=== PATIENT | male | born 1945 | race African-American/Black ===

== ENCOUNTER → 2016-08-22 | Outpatient (CLI) | payer MEDICARE, BC, OTHER ==
[2016-08-22 08:46] LABS: ABSOLUTE EOSINOPHILS # (AUTO) 0.2 10^3/uL (0.0-0.6); ABSOLUTE LYMPHOCYTES (AUTO) 1.6 10^3/uL (0.5-4.7); ABSOLUTE NEUT (AUTO) 6.8 10^3/uL (1.7-8.2); BASOPHILS % (AUTO) 0.4 % (0-2); EOSINOPHILS % (AUTO) 1.8 % (0-6); HEMATOCRIT 44.9 % (37.9-51.0); HEMOGLOBIN 15.3 g/dL (13.5-17.0); LYMPHOCYTES % (AUTO) 16.3 % (13-45); MEAN CORPUSCULAR HEMOGLOBIN 28.6 pg (27.0-33.4); MEAN CORPUSCULAR HGB CONC 34.2 g/dL (32.0-36.0); MEAN CORPUSCULAR VOLUME 84 fl (80-97); MONOCYTES % (AUTO) 10.7 % (3-13); RED BLOOD COUNT 5.36 10^6/uL (4.35-5.55); RED CELL DISTRIBUTION WIDTH 14.9 % (11.5-14.0); SEGMENTED NEUTROPHILS % (AUTO) 70.8 % (42-78); WHITE BLOOD COUNT 9.6 10^3/uL (4.0-10.5)
[2016-08-22 09:01] LABS: ALANINE AMINOTRANSFERASE 47 U/L (21-72); ALBUMIN 3.7 g/dL (3.5-5.0); ALKALINE PHOSPHATASE 54 U/L (38-126); ANION GAP 11 (5-19); ASPARTATE AMINO TRANSFERASE 51 U/L (17-59); BILIRUBIN,DIRECT 0.3 mg/dL (0.0-0.4); BILIRUBIN,TOTAL 0.6 mg/dL (0.2-1.3); BLOOD UREA NITROGEN 23 mg/dL (7-20); CALCIUM 9.3 mg/dL (8.4-10.2); CARBON DIOXIDE 31 mmol/L (22-30); CHLORIDE 103 mmol/L (98-107); CHOLESTEROL 195.47 mg/dL (0-200); CREATININE RESULT 2.25 mg/dL (0.52-1.25); Direct HDL 39 mg/dL (>40); GLUCOSE 112 mg/dL (75-110); POTASSIUM 3.1 mmol/L (3.6-5.0); SODIUM 144.8 mmol/L (137-145); TOTAL PROTEIN 6.4 g/dL (6.3-8.2); TRIGLYCERIDES 151 mg/dL (<150)
[2016-08-22 09:12] LABS: DIRECT LDL 112 mg/dL (<100)
[2016-08-22 09:15] LABS: VLDL CHOLESTEROL 30.2 mg/dL (10-31)
[2016-08-23 13:47] LABS: PROSTATE SPECIFIC ANTIGEN 5.3 ng/mL (0.0-4.0); PSA % FREE 32.8 % (.); PSA FREE 1.74 ng/mL
== END ==
LOC: OD 07:35
PROVIDERS: ATTEND Urology
DX: N52.8 Other male erectile dysfunction (principal); E13.9 Other specified diabetes mellitus without complications; E29.1 Testicular hypofunction; N40.1 Benign prostatic hyperplasia with lower urinary tract symptoms; I10 Essential (primary) hypertension
CPT/HCPCS: 36415; 80053; 80061; 83036; 84154; 84403; 85025

== ENCOUNTER → 2016-11-29 | Outpatient (CLI) | payer MEDICARE, BC, OTHER ==
[2016-11-29 13:49] LABS: ABSOLUTE EOSINOPHILS # (AUTO) 0.2 10^3/uL (0.0-0.6); ABSOLUTE LYMPHOCYTES (AUTO) 1.1 10^3/uL (0.5-4.7); ABSOLUTE MONOCYTES (AUTO) 0.8 10^3/uL (0.1-1.4); ABSOLUTE NEUT (AUTO) 6.3 10^3/uL (1.7-8.2); BASOPHILS % (AUTO) 0.6 % (0-2); EOSINOPHILS % (AUTO) 1.9 % (0-6); HEMATOCRIT 40.8 % (37.9-51.0); HEMOGLOBIN 14.4 g/dL (13.5-17.0); HGB HCT DIFFERENCE 2.4; LYMPHOCYTES % (AUTO) 13.3 % (13-45); MEAN CORPUSCULAR HEMOGLOBIN 29.7 pg (27.0-33.4); MEAN CORPUSCULAR HGB CONC 35.2 g/dL (32.0-36.0); MEAN CORPUSCULAR VOLUME 84 fl (80-97); MONOCYTES % (AUTO) 9.4 % (3-13); RED BLOOD COUNT 4.84 10^6/uL (4.35-5.55); RED CELL DISTRIBUTION WIDTH 15.7 % (11.5-14.0); SEGMENTED NEUTROPHILS % (AUTO) 74.8 % (42-78); WHITE BLOOD COUNT 8.4 10^3/uL (4.0-10.5)
[2016-11-29 13:51] LABS: ABSOLUTE EOSINOPHILS # (AUTO) 0.2 10^3/uL (0.0-0.6); ABSOLUTE LYMPHOCYTES (AUTO) 1.1 10^3/uL (0.5-4.7); ABSOLUTE MONOCYTES (AUTO) 0.8 10^3/uL (0.1-1.4); ABSOLUTE NEUT (AUTO) 6.3 10^3/uL (1.7-8.2); BASOPHILS % (AUTO) 0.6 % (0-2); EOSINOPHILS % (AUTO) 1.9 % (0-6); HEMATOCRIT 40.8 % (37.9-51.0); HEMOGLOBIN 14.4 g/dL (13.5-17.0); HGB HCT DIFFERENCE 2.4; LYMPHOCYTES % (AUTO) 13.3 % (13-45); MEAN CORPUSCULAR HEMOGLOBIN 29.7 pg (27.0-33.4); MEAN CORPUSCULAR HGB CONC 35.2 g/dL (32.0-36.0); MEAN CORPUSCULAR VOLUME 84 fl (80-97); MONOCYTES % (AUTO) 9.4 % (3-13); RED BLOOD COUNT 4.84 10^6/uL (4.35-5.55); RED CELL DISTRIBUTION WIDTH 15.7 % (11.5-14.0); SEGMENTED NEUTROPHILS % (AUTO) 74.8 % (42-78); WHITE BLOOD COUNT 8.4 10^3/uL (4.0-10.5)
[2016-11-29 14:17] LABS: ALANINE AMINOTRANSFERASE 34 U/L (21-72); ALKALINE PHOSPHATASE 61 U/L (38-126); ANION GAP 10 (5-19); ASPARTATE AMINO TRANSFERASE 27 U/L (17-59); BILIRUBIN,DIRECT 0.4 mg/dL (0.0-0.4); BILIRUBIN,TOTAL 0.8 mg/dL (0.2-1.3); BLOOD UREA NITROGEN 24 mg/dL (7-20); CALCIUM 9.7 mg/dL (8.4-10.2); CARBON DIOXIDE 32 mmol/L (22-30); CHLORIDE 102 mmol/L (98-107); CHOLESTEROL 222.55 mg/dL (0-200); CREATININE RESULT 2.26 mg/dL (0.52-1.25); Direct HDL 34 mg/dL (>40); GLUCOSE 77 mg/dL (75-110); POTASSIUM 3.1 mmol/L (3.6-5.0); TOTAL PROTEIN 6.9 g/dL (6.3-8.2); TRIGLYCERIDES 177 mg/dL (<150)
[2016-11-29 14:28] LABS: DIRECT LDL 144 mg/dL (<100)
[2016-11-29 14:35] LABS: VLDL CHOLESTEROL 35.4 mg/dL (10-31)
[2016-11-30 08:51] LABS: PROSTATE SPECIFIC ANTIGEN 4.2 ng/mL (0.0-4.0); PSA % FREE 30.7 % (.); PSA FREE 1.29 ng/mL
== END ==
LOC: OD 12:24
PROVIDERS: ATTEND Family Medicine
DX: I10 Essential (primary) hypertension (principal); E78.4 Other hyperlipidemia; E13.9 Other specified diabetes mellitus without complications; N40.1 Benign prostatic hyperplasia with lower urinary tract symptoms; N52.8 Other male erectile dysfunction
CPT/HCPCS: 36415; 80053; 80061; 83036; 84153; 84154; 84403; 85025

== ENCOUNTER → 2017-03-11 | Outpatient (CLI) | payer MEDICARE, BC, OTHER ==
[2017-03-11 15:50] LABS: ABSOLUTE EOSINOPHILS # (AUTO) 0.1 10^3/uL (0.0-0.6); ABSOLUTE LYMPHOCYTES (AUTO) 1.7 10^3/uL (0.5-4.7); ABSOLUTE MONOCYTES (AUTO) 0.9 10^3/uL (0.1-1.4); ABSOLUTE NEUT (AUTO) 5.2 10^3/uL (1.7-8.2); BASOPHILS % (AUTO) 0.5 % (0-2); EOSINOPHILS % (AUTO) 1.3 % (0-6); HEMATOCRIT 43.3 % (37.9-51.0); HEMOGLOBIN 15.1 g/dL (13.5-17.0); LYMPHOCYTES % (AUTO) 21.9 % (13-45); MEAN CORPUSCULAR HEMOGLOBIN 28.8 pg (27.0-33.4); MEAN CORPUSCULAR HGB CONC 34.9 g/dL (32.0-36.0); MEAN CORPUSCULAR VOLUME 82 fl (80-97); MONOCYTES % (AUTO) 10.9 % (3-13); RED BLOOD COUNT 5.26 10^6/uL (4.35-5.55); RED CELL DISTRIBUTION WIDTH 15.7 % (11.5-14.0); SEGMENTED NEUTROPHILS % (AUTO) 65.4 % (42-78)
[2017-03-11 16:07] LABS: HEMATOCRIT 43.3 % (37.9-51.0); HEMOGLOBIN 15.1 g/dL (13.5-17.0); MEAN CORPUSCULAR HEMOGLOBIN 28.8 pg (27.0-33.4); MEAN CORPUSCULAR HGB CONC 34.9 g/dL (32.0-36.0); MEAN CORPUSCULAR VOLUME 82 fl (80-97); RED BLOOD COUNT 5.26 10^6/uL (4.35-5.55); RED CELL DISTRIBUTION WIDTH 15.7 % (11.5-14.0)
[2017-03-11 16:08] LABS: CHOLESTEROL 253.63 mg/dL (0-200); Direct HDL 44 mg/dL (>40); TRIGLYCERIDES 198 mg/dL (<150)
[2017-03-11 16:09] LABS: ANION GAP 10 (5-19); BLOOD UREA NITROGEN 21 mg/dL (7-20); CARBON DIOXIDE 32 mmol/L (22-30); CHLORIDE 107 mmol/L (98-107); CREATININE RESULT 2.19 mg/dL (0.52-1.25); GLUCOSE 46 mg/dL (75-110); POTASSIUM 3.3 mmol/L (3.6-5.0); SODIUM 149.4 mmol/L (137-145)
[2017-03-11 16:10] LABS: ALANINE AMINOTRANSFERASE 30 U/L (21-72); ALBUMIN 3.8 g/dL (3.5-5.0); ALKALINE PHOSPHATASE 61 U/L (38-126); ANION GAP 11 (5-19); ASPARTATE AMINO TRANSFERASE 25 U/L (17-59); BILIRUBIN,DIRECT 0.4 mg/dL (0.0-0.4); BILIRUBIN,TOTAL 0.9 mg/dL (0.2-1.3); BLOOD UREA NITROGEN 20 mg/dL (7-20); CALCIUM 8.9 mg/dL (8.4-10.2); CARBON DIOXIDE 31 mmol/L (22-30); CHLORIDE 106 mmol/L (98-107); CREATININE RESULT 2.17 mg/dL (0.52-1.25); GLUCOSE 46 mg/dL (75-110); POTASSIUM 3.3 mmol/L (3.6-5.0); SODIUM 148.4 mmol/L (137-145); TOTAL PROTEIN 6.2 g/dL (6.3-8.2)
[2017-03-11 16:18] LABS: DIRECT LDL 157 mg/dL (<100)
[2017-03-11 16:19] LABS: VLDL CHOLESTEROL 39.6 mg/dL (10-31)
== END ==
LOC: OD 14:47
PROVIDERS: ATTEND Urology
DX: I12.9 Hypertensive chronic kidney disease with stage 1 through stage 4 chronic kidney disease, or unspecified chronic kidney disease (principal); N18.3 Chronic kidney disease, stage 3 (moderate); E78.5 Hyperlipidemia, unspecified; N52.8 Other male erectile dysfunction; N52.9 Male erectile dysfunction, unspecified; N40.1 Benign prostatic hyperplasia with lower urinary tract symptoms; E29.1 Testicular hypofunction
CPT/HCPCS: 36415; 80048; 80053; 80061; 84153; 84403; 85025; 85027

== ENCOUNTER 2017-03-31 17:59 | Inpatient (IN) | payer MEDICARE, BC, OTHER ==
[2017-03-31] MEDS ORDERED: MORPHINE SULFATE 10 MG/ML INJ IV ONE ×2 (18:45→22:38)
--- NOTE | 2017-03-31 18:46 | ER Document Report ---
ED Medical Screen (RME) - General Chief Complaint: Low Back Pain Stated Complaint: LEFT SIDE AND BACK PAIN Time Seen by Provider: 03/31/17 18:40 Mode of Arrival: Ambulatory Information source: Patient Notes: 71-year-old male history of back pain presents with complaints of worsening pain. He denies any trauma, notes pain is on the right flank 2 days ago and now worse on the left flank. Patient has never had his aorta evaluated I have greeted and performed a rapid initial assessment of this patient. A comprehensive ED assessment and evaluation of the patient, analysis of test results and completion of the medical decision making process will be conducted by additional ED providers. PHYSICAL EXAMINATION: GENERAL: Well-appearing, well-nourished and in moderate distress HEAD: Atraumatic, normocephalic. EYES: Pupils equal round extraocular movements intact, conjunctiva are normal. ENT: Nares patent NECK: Normal range of motion LUNGS: No respiratory distress Musculoskeletal: Tenderness on palpation of bilateral flanks left worse than right NEUROLOGICAL: Normal speech, normal gait. PSYCH: Normal mood, normal affect. SKIN: Warm, Dry, normal turgor, no rashes or lesions noted. TRAVEL OUTSIDE OF THE [place] IN LAST 30 DAYS: No - Related Data Allergies/Adverse Reactions: Penicillins Allergy (Verified 03/31/17 18:02) Gfyilae-Lof-Jvw Reductase Inhibitor Allergy (Verified 03/31/17 18:02) Past Medical History - Social History Frequency of alcohol use: None Drug Abuse: None - Past Medical History Cardiac Medical History: Reports: Hx Hypercholesterolemia, Hx Hypertension Denies: Hx Heart Attack - 3 HEART CATHERIZATION Pulmonary Medical History: Denies: Hx Asthma Neurological Medical History: Reports: Hx Cerebrovascular Accident - RIGHT SIDE WEAKNESS 1998. Denies: Hx Seizures Endocrine Medical History: Reports: Hx Diabetes Mellitus Type 1, Hx Diabetes Mellitus Type 2 Renal/ Medical History: Denies: Hx Peritoneal Dialysis GI Medical History: Denies: Hx Hepatitis, Hx Hiatal Hernia, Hx Ulcer Infectious Medical History: Denies: Hx Hepatitis Past Surgical History: Reports: Hx Cardiac Catheterization - x3, Hx Orthopedic Surgery - R Knee. Denies: Hx Open Heart Surgery, Hx Pacemaker - Immunizations Hx Diphtheria, Pertussis, Tetanus Vaccination: Yes Physical Exam - Vital signs Vitals: Temp Pulse Resp BP Pulse Ox 98.5 F 110 H 20 166/90 H 97 03/31/17 18:28 03/31/17 18:28 03/31/17 18:28 03/31/17 18:28 03/31/17 18:28 Course - Vital Signs Vital signs: Temp Pulse Resp BP Pulse Ox 98.5 F 110 H 20 166/90 H 97 03/31/17 18:28 03/31/17 18:28 03/31/17 18:28 03/31/17 18:28 03/31/17 18:28
[2017-03-31] MEDS ORDERED: ONDANSETRON HCL INJ/PF 4 MG/2 ML SDV IV ONE (19:18)
--- NOTE | 2017-03-31 19:21 | ER Document Report ---
ED General - General Chief Complaint: Low Back Pain Stated Complaint: LEFT SIDE AND BACK PAIN Time Seen by Provider: 03/31/17 18:40 Mode of Arrival: Ambulatory Information source: Patient Notes: 71-year-old male history of back pain presents with complaints of worsening pain. He denies any trauma, notes pain is on the right flank 2 days ago and now worse on the left flank. Patient has never had his aorta evaluated. About triage nose was reviewed. He has been having severe lower back pain, radiating to both legs. Initially it was on the right side now moved to the left side. Having difficulty sitting up laying down even standing and walking. With a history of diabetic neuropathy for the last few years. Denies any abdominal pain nausea vomiting diarrhea or constipation. Denies any dysuria frequency urgency. Denies hematuria. No fever chills or other constitutional symptoms. TRAVEL OUTSIDE OF THE [place] IN LAST 30 DAYS: No - Related Data Allergies/Adverse Reactions: Penicillins Allergy (Verified 03/31/17 18:02) Hdttbqm-Vts-Ain Reductase Inhibitor Allergy (Verified 03/31/17 18:02) Past Medical History - General Information source: Patient - Social History Smoking Status: Never Smoker Frequency of alcohol use: None Drug Abuse: None Family History: Reviewed & Not Pertinent Patient has suicidal ideation: No Patient has homicidal ideation: No - Past Medical History Cardiac Medical History: Reports: Hx Hypercholesterolemia, Hx Hypertension Denies: Hx Heart Attack - 3 HEART CATHERIZATION Pulmonary Medical History: Denies: Hx Asthma Neurological Medical History: Reports: Hx Cerebrovascular Accident - RIGHT SIDE WEAKNESS 1998. Denies: Hx Seizures Endocrine Medical History: Reports: Hx Diabetes Mellitus Type 1, Hx Diabetes Mellitus Type 2 Renal/ Medical History: Denies: Hx Peritoneal Dialysis GI Medical History: Denies: Hx Hepatitis, Hx Hiatal Hernia, Hx Ulcer Infectious Medical History: Denies: Hx Hepatitis Past Surgical History: Reports: Hx Cardiac Catheterization - x3, Hx Orthopedic Surgery - R Knee. Denies: Hx Open Heart Surgery, Hx Pacemaker - Immunizations Hx Diphtheria, Pertussis, Tetanus Vaccination: Yes Hx Pneumococcal Vaccination: 04/07/12 Review of Systems - Review of Systems Notes: REVIEW OF SYSTEMS: CONSTITUTIONAL : Denies fever, chills, or sweats. Denies recent illness. EENT: Denies eye, ear, throat, or mouth pain or symptoms. Denies nasal or sinus congestion or discharge. Denies throat, tongue, or mouth swelling or difficulty swallowing. CARDIOVASCULAR: Denies chest pain. Denies palpitations or racing or irregular heart beat. Denies ankle edema. RESPIRATORY: Denies cough, cold, or chest congestion. Denies shortness of breath, difficulty breathing, or wheezing. GASTROINTESTINAL: Denies abdominal pain or distention. Denies nausea, vomiting , or diarrhea. Denies blood in vomitus, stools, or per rectum. Denies black, tarry stools. Denies constipation. GENITOURINARY: Denies difficulty urinating, painful urination, burning, frequency, blood in urine, or discharge. MUSCULOSKELETAL: As per history of complain SKIN: Denies rash, lesions or sores. HEMATOLOGIC : Denies easy bruising or bleeding. LYMPHATIC: Denies swollen, enlarged glands. NEUROLOGICAL: Denies confusion or altered mental status. Denies passing out or loss of consciousness. Denies dizziness or lightheadedness. Denies headache. Denies weakness or paralysis or loss of use of either side. Denies problems with gait or speech. Denies sensory loss, numbness, or tingling. Denies seizures. PSYCHIATRIC: Denies anxiety or stress. Denies depression, suicidal ideation, or homicidal ideation. ALL OTHER SYSTEMS REVIEWED AND NEGATIVE. Dictation was performed using [employer] voice recognition software PHYSICAL EXAMINATION: GENERAL: Appeared to be moderate to severe discomfort HEAD: Atraumatic, normocephalic. EYES: Pupils equal round and reactive to light, extraocular movements intact, sclera anicteric, conjunctiva are normal. ENT: Nares patent, oropharynx clear without exudates. Moist mucous membranes. NECK: Normal range of motion, supple without lymphadenopathy LUNGS: Breath sounds clear to auscultation bilaterally and equal. No wheezes rales or rhonchi. HEART: Regular rate and rhythm without murmurs ABDOMEN: Soft, nontender, nondistended abdomen. No guarding, no rebound. No masses appreciated. Musculoskeletal: He could not perform any flexion extension of the hip due to pain, dorsalis pedis pulses are present. NEUROLOGICAL: Cranial nerves grossly intact. Normal speech, normal gait. Normal sensory, motor exams PSYCH: Normal mood, normal affect. SKIN: Warm, Dry, normal turgor, no rashes or lesions noted. Physical Exam - Vital signs Vitals: Temp Pulse Resp BP Pulse Ox 98.5 F 110 H 20 166/90 H 97 03/31/17 18:28 03/31/17 18:28 03/31/17 18:28 03/31/17 18:28 03/31/17 18:28 Course - Re-evaluation Re-evalutation: 03/31/17 22:38 CT report reviewed, patient was reexamined, he is still in pain reexamination of the abdomen he had left lower quadrant tenderness noted., CT was reviewed by me itself and it indicates he has large amount of fecal material. 04/01/17 03:34 He has evacuated some but still having severe back pain as well as abdominal pain. He was given Levaquin, discussed the case with Dr. Humphreys And currently being admitted. - Vital Signs Vital signs: Temp Pulse Resp BP Pulse Ox 98.5 F 110 H 20 166/90 H 97 03/31/17 18:28 03/31/17 18:28 03/31/17 18:28 03/31/17 18:28 03/31/17 18:28 - Laboratory Result Diagrams: 03/31/17 19:00 03/31/17 19:00 Laboratory results interpreted by me: 03/31/17 03/31/17 19:00 19:00 WBC 15.0 H RDW 15.8 H Seg Neutrophils % 82.6 H Lymphocytes % 6.4 L Absolute Neutrophils 12.4 H Absolute Monocytes 1.5 H Sodium 145.3 H Potassium 3.1 L Creatinine 2.63 H Est GFR ( Amer) 29 L Est GFR (Non-Af Amer) 24 L Discharge - Discharge Clinical Impression: Abdominal pain Qualifiers: Abdominal location: lower abdomen, unspecified Qualified Code(s): R10.30 - Lower abdominal pain, unspecified Diverticulitis large intestine Qualifiers: Diverticulitis bleeding: without bleeding Diverticulitis complication: without perforation or abscess Qualified Code(s): K57.32 - Diverticulitis of large intestine without perforation or abscess without bleeding Back pain Qualifiers: Back pain location: low back pain Chronicity: acute Back pain laterality: left Sciatica presence: with sciatica Sciatica laterality: sciatica of left side Qualified Code(s): M54.42 - Lumbago with sciatica, left side Constipation Qualifiers: Constipation type: slow transit constipation Qualified Code(s): K59.01 - Slow transit constipation Condition: Fair Disposition: ADMITTED INPATIENT Admitting Provider: [facility] Unit Admitted: Telemetry Referrals: NICHOL VÁSQUEZ MD [Primary Care Provider] - Follow up as needed
[2017-03-31 19:25] LABS: ABSOLUTE BASOPHILS # (AUTO) 0.1 10^3/uL (0.0-0.2); ABSOLUTE MONOCYTES (AUTO) 1.5 10^3/uL (0.1-1.4); ABSOLUTE NEUT (AUTO) 12.4 10^3/uL (1.7-8.2); BASOPHILS % (AUTO) 0.6 % (0-2); EOSINOPHILS % (AUTO) 0.1 % (0-6); HEMATOCRIT 45.3 % (37.9-51.0); HEMOGLOBIN 15.8 g/dL (13.5-17.0); LYMPHOCYTES % (AUTO) 6.4 % (13-45); MEAN CORPUSCULAR HEMOGLOBIN 28.8 pg (27.0-33.4); MEAN CORPUSCULAR HGB CONC 34.9 g/dL (32.0-36.0); MEAN CORPUSCULAR VOLUME 83 fl (80-97); MONOCYTES % (AUTO) 10.3 % (3-13); PLATELET COUNT 276 10^3/uL (150-450); RED BLOOD COUNT 5.49 10^6/uL (4.35-5.55); RED CELL DISTRIBUTION WIDTH 15.8 % (11.5-14.0); SEGMENTED NEUTROPHILS % (AUTO) 82.6 % (42-78); TOTAL CELLS COUNTED % (AUTO) 100 %
[2017-03-31 19:43] LABS: ALANINE AMINOTRANSFERASE 40 U/L (21-72); ALBUMIN 4.3 g/dL (3.5-5.0); ALKALINE PHOSPHATASE 68 U/L (38-126); ANION GAP 13 (5-19); ASPARTATE AMINO TRANSFERASE 26 U/L (17-59); BILIRUBIN,DIRECT 0.3 mg/dL (0.0-0.4); BLOOD UREA NITROGEN 19 mg/dL (7-20); CALCIUM 9.7 mg/dL (8.4-10.2); CARBON DIOXIDE 30 mmol/L (22-30); CHLORIDE 102 mmol/L (98-107); GLUCOSE 109 mg/dL (75-110); POTASSIUM 3.1 mmol/L (3.6-5.0); SODIUM 145.3 mmol/L (137-145); TOTAL PROTEIN 7.9 g/dL (6.3-8.2)
--- NOTE | 2017-03-31 22:27 | RADIOLOGY REPORT (SQ) ---
EXAM DESCRIPTION: CT CHEST WITHOUT COMPLETED DATE/TIME: 03/31/2017 10:12 pm REASON FOR STUDY: low back pain, concerns for aneurysm COMPARISON: None. TECHNIQUE: CT scan performed of the chest without intravenous contrast. Images reviewed with lung, soft tissue and bone windows. Reconstructed coronal and sagittal MPR images reviewed. All images st ored on PACS. All CT scanners at this facility use dose modulation, iterative reconstruction, and/or weight based d osing when appropriate to reduce radiation dose to as low as reasonably achievable (ALARA). [facility]: Dose Right [facility]: CareDose [facility]: Dose Right [facility]: Teradose 4D [facility]: [employer] RADIATION DOSE: mGy. LIMITATIONS: No IV contrast. Elevated creatinine. FINDINGS: LUNGS AND PLEURA: No masses, infiltrates, pneumothorax. No pleural effusions, calcificati ons. HILAR AND MEDIASTINAL STRUCTURES: No identified masses or abnormal nodes. No obvious aneurysm. HEART AND VASCULAR STRUCTURES: No aneurysm. No pericardial effusion. UPPER ABDOMEN: See separate report of the CT of the abdomen. THYROID AND OTHER SOFT TISSUES: No masses. No adenopathy. BONES: No significant finding. HARDWARE: None in the chest. OTHER: No other significant findings. IMPRESSION: NO SIGNIFICANT FINDING ON NON-CONTRASTED CHEST CT. TECHNICAL DOCUMENTATION: JOB ID: [id number] Quality ID # [id number]: Final reports with documentation of one or more dose reduction techniques (e.g., Au tomated exposure control, adjustment of the mA and/or kV according to patient size, use of iterative reconstruction technique) 2010 [employer] All Rights Reserved
--- NOTE | 2017-03-31 22:29 | RADIOLOGY REPORT (SQ) ---
EXAM DESCRIPTION: CT ABD/PELVIS NO ORAL OR IV COMPLETED DATE/TIME: 03/31/2017 10:12 pm REASON FOR STUDY: low back pain, concerns for aneurysm COMPARISON: None. TECHNIQUE: CT scan of the abdomen and pelvis performed without intravenous or oral contrast. Images reviewed with lung, soft tissue, and bone windows. Reconstructed coronal and sagittal MPR images revi ewed. All images stored on PACS. All CT scanners at this facility use dose modulation, iterative reconstruction, and/or weight based d osing when appropriate to reduce radiation dose to as low as reasonably achievable (ALARA). [facility]: Dose Right [facility]: CareDose [facility]: Dose Right [facility]: Teradose 4D [facility]: Smart [employer] RADIATION DOSE: CT Rad equipment meets quality standard of care and radiation dose reduction techniq ues were employed. CTDIvol: 5.8 mGy. DLP: 408 mGy-cm.mGy. LIMITATIONS: None. FINDINGS: LOWER CHEST: No significant findings. No nodules or infiltrates. NON-CONTRASTED LIVER, SPLEEN, ADRENALS: Evaluation limited by lack of IV contrast. No identified sign ificant masses. PANCREAS: No masses. No peripancreatic inflammatory changes. GALLBLADDER: No identified stones by CT criteria. No inflammatory changes to suggest cholecystitis. RIGHT KIDNEY AND URETER: No suspicious masses. Assessment limited by lack of IV contrast. No signif icant calcifications. No hydronephrosis or hydroureter. LEFT KIDNEY AND URETER: No suspicious masses. Assessment limited by lack of IV contrast. No signifi cant calcifications. No hydronephrosis or hydroureter. AORTA AND RETROPERITONEUM: No aneurysm. No retroperitoneal masses or adenopathy. BOWEL AND PERITONEAL CAVITY: No obvious masses or inflammatory changes. No free fluid. APPENDIX: Normal. PELVIS, BLADDER, AND ABDOMINAL WALL:Penile prosthesis. Bladder unremarkable. Enlarged prostate. BONES: Degenerative changes L5-S1. OTHER: No other significant finding. IMPRESSION: NO SIGNIFICANT OR ACUTE PROCESS IN THE ABDOMEN OR PELVIS. COMMENT: Quality ID # [id number]: Final reports with documentation of one or more dose reduction techniques (e.g., Automated exposure control, adjustment of the mA and/or kV according to patient size, use of iterative reconstruction technique) TECHNICAL DOCUMENTATION: JOB ID: [id number] [employer]- All Rights Reserved
[2017-03-31] MEDS ORDERED: POTASSIUM CHLORIDE 10 MEQ TABLET.SA PO ONE (22:31)
[2017-03-31] MEDS ORDERED: DOCUSATE SODIUM 100 MG CAPSULE PO ONE (22:36)
[2017-03-31] MEDS ORDERED: NA PHOS,M-B/NA PHOS,DI-BA (ADULT) 133 ML ENEMA PR ONE (22:36)
[2017-04-01] MEDS ORDERED: LEVOFLOXACIN 750 MG TABLET PO ONE (03:09)
[2017-04-01] MEDS ORDERED: PROMETHAZINE HCL INJ 50 MG/1 ML VIAL IM PRN (03:33)
[2017-04-01] MEDS ORDERED: CIPROFLOXACIN 400 MG/D5W RTU 400 MG/200 ML RTUPB IV ONE (03:36)
[2017-04-01] MEDS ORDERED: METRONIDAZOLE 500 MG/NS RTU 250 MG in CONTAINER,EMPTY 1 EACH IV SCH (03:45)
[2017-04-01] MEDS ORDERED: METRONIDAZOLE 500 MG/NS RTU 250 MG in CONTAINER,EMPTY 1 EACH IV ONE (04:00)
[2017-04-01] MEDS ORDERED: NORMAL SALINE 1000 ML 1,000 ML IV ONE (05:03)
[2017-04-01] MEDS ORDERED: NORMAL SALINE 1000 ML 1,000 ML IV PRN ×3 (05:03→08:41)
[2017-04-01] MEDS ORDERED: METRONIDAZOLE 500 MG/NS RTU 100 ML IV ONE (05:04)
[2017-04-01] MEDS ORDERED: PROMETHAZINE HCL INJ 50 MG/1 ML VIAL ONE (05:20)
[2017-04-01] MEDS ORDERED: DEXTROSE 40% GEL 15 GM TUBE PO PRN ×6 (05:48→13:45)
[2017-04-01] MEDS ORDERED: DEXTROSE 50%-WATER 25 GM/50 ML DISP.SYRIN IV PRN ×6 (05:48→13:45)
[2017-04-01] MEDS ORDERED: GLUCAGON,HUMAN RECOMB 1 MG INJ SUBCUT PRN (05:48)
[2017-04-01] MEDS ORDERED: GLUCAGON,HUMAN RECOMB 1 MG INJ IM PRN ×2 (05:54→13:45)
[2017-04-01] MEDS ORDERED: LABETALOL HCL INJ 20 MG/4 ML DISP.SYRIN IV PRN (05:56)
[2017-04-01 06:31] LABS: ARTERIAL BLOOD BASE EXCESS 0.1 mmol/L; ARTERIAL BLOOD H2CO3 1.39 mmol/L (1.05-1.35); ARTERIAL BLOOD HCO3 25.9 mmol/L (20-26); ARTERIAL BLOOD O2 SATURATION 88.1 % (94-98); ARTERIAL BLOOD PCO2 46.3 mmHg (35-45); ARTERIAL BLOOD PH 7.37 (7.35-7.45); ARTERIAL BLOOD TOTAL CO2 27.3 mmol/L (23-27)
[2017-04-01 06:32] LABS: ARTERIAL BLOOD FIO2 ROOM AIR
[2017-04-01] MEDS: HEPARIN SOD (PORCINE) 5,000 UNIT/ML 1 ML SYRINGE SUBCUT SCH ×3 (06:34→21:25)
[2017-04-01 06:56] LABS: INTERNATIONAL RATION (INR) 0.95; PROTHROMBIN TIME 13.4 SEC (11.4-15.4)
[2017-04-01 06:57] LABS: PARTIAL THROMBOPLASTIN TIME 42.3 SEC (23.5-35.8)
[2017-04-01 07:10] LABS: CREATINE KINASE MB 1.71 ng/mL (<4.55)
[2017-04-01 07:14] LABS: FREE T4 (FREE THYROXINE) 1.01 ng/dL (0.78-2.19)
[2017-04-01 07:16] LABS: TROPONIN I 0.038 ng/mL
[2017-04-01 07:28] LABS: THYROID STIMULATING HORMONE 3.87 uIU/mL (0.47-4.68)
[2017-04-01] MEDS ORDERED: POLYETHYLENE GLYCOL 3350 POWDER 17 GM/1 PACKET PO ONE (09:00)
[2017-04-01] MEDS: CIPROFLOXACIN 400 MG/D5W RTU 400 MG/200 ML RTUPB IV SCH ×2 (09:01→21:25)
[2017-04-01] MEDS: MORPHINE SULFATE 10 MG/ML INJ IV PRN ×2 (09:02→23:22)
[2017-04-01] MEDS: DOCUSATE SODIUM 100 MG CAPSULE PO SCH ×2 (09:02→17:47)
[2017-04-01 09:06] LABS: ANION GAP 18 (5-19); BLOOD UREA NITROGEN 21 mg/dL (7-20); CALCIUM 9.7 mg/dL (8.4-10.2); CARBON DIOXIDE 24 mmol/L (22-30); CHLORIDE 102 mmol/L (98-107); GLUCOSE 125 mg/dL (75-110); MAGNESIUM 1.6 mg/dL (1.6-2.3); POTASSIUM 3.5 mmol/L (3.6-5.0); SODIUM 144.3 mmol/L (137-145)
[2017-04-01] MEDS ORDERED: INFLUENZA ADLT QUAD (36MOS+) 2017-18 VAC 0.5 ML SYR IM PRN (10:18)
[2017-04-01] MEDS ORDERED: ONDANSETRON HCL INJ/PF 4 MG/2 ML SDV IV PRN (11:07)
--- NOTE | 2017-04-01 11:38 | RADIOLOGY REPORT (SQ) ---
EXAM DESCRIPTION: MRI LUMBAR SPINE WITHOUT COMPLETED DATE/TIME: 04/01/2017 10:25 am REASON FOR STUDY: acute lower back pain with radiculopathy COMPARISON: 2014. TECHNIQUE: Sagittal and Axial imaging includes T1, T2, STIR and gradient echo sequences. Coronal T2/ HASTE imaging. LIMITATIONS: None. FINDINGS: VISUALIZED UPPER ABDOMEN: Limited evaluation. No acute or suspicious findings suggested. SEGMENTATION: No transitional anatomy. The lowest well-developed disc space is labeled L5-S1. ALIGNMENT: Minimal grade 1 listhesis at the lumbosacral junction. VERTEBRAE: Intact. BONE MARROW: Marrow edema at L5-S1 has resolved. Fatty changes are now noted. DISC SIGNAL: Diminished signal and height L4-5 and L5-S1. POSTERIOR ELEMENTS: No pars defect appreciated. Lower lumbar facet overgrowth. HARDWARE: None in the spine. CORD AND CONUS: Normal in size and signal intensity. Conus at the appropriate level. SOFT TISSUES: No aortic aneurysm seen. No bulky retroperitoneal adenopathy or mass. No paraspinal mas s or fluid. L1-L2: No significant spinal stenosis or exit foraminal stenosis. L2-L3: No significant spinal stenosis or exit foraminal stenosis. L3-L4: No significant spinal stenosis or exit foraminal stenosis. L4-L5: Mild right and moderate left foraminal narrowing. L5-S1: Broad protrusion effaces the anterior CSF space with slightly eccentric right foraminal and la teral extension. Contact with both S1 nerve roots, slight mass effect on the right. Irregular facet degenerative overgrowth. LOWER THORACIC: Incompletely imaged. No stenosis seen. SACRUM: Visualized upper sacrum intact. OTHER: No other significant findings. IMPRESSION: 1. Lumbar spondylosis without critical central stenosis. Disc disease looks most prono unced at L5-S1. Here, there is mild mass effect on the right S1 nerve root. Exuberant facet arthrop athy as well. Marrow edema regionally has resolved, however. TECHNICAL DOCUMENTATION: JOB ID: [id number]- All Rights Reserved
[2017-04-01] MEDS: DICYCLOMINE HCL INJ 20 MG/2 ML AMPULE IM SCH (12:31)
[2017-04-01] MEDS: METRONIDAZOLE 500 MG/NS RTU 100 ML IV SCH ×3 (12:32→23:24)
[2017-04-01] MEDS ORDERED: PREGABALIN 100 MG CAPSULE PO PRN (13:43)
[2017-04-01] MEDS ORDERED: NITROGLYCERIN 0.4 MG/TAB 25 TAB/BOTTLE SL PRN (13:43)
[2017-04-01 13:57] LABS: CREATINE KINASE MB 2.8 ng/mL (<4.55); TROPONIN I 0.049 ng/mL
--- NOTE | 2017-04-01 14:25 | PDOC H&P ---
History of Present Illness Admission Date/PCP: 04/01/17 03:44 KODY VARGHESE MD Patient complains of: Lower back pain and abdominal pain History of Present Illness: CAROL JENSEN is a 71 year old male This is a 71-year-old male with a significant history of the type 2 diabetes mellitus currently on insulin pump and see the [facility] and a history of erectile dysfunction currently see a urology and on testosterone injections and history of the coronary artery disease and a history of chronic back pain and history of the discitis in the past and was admitted to the [facility] for thatCame to the emergency department with a complaining of lower back pain radiating to the bilaterally initially left in the right side and patient was also complaining of her left lower quadrant painAnd not feeling well and patient unable to move unable to walkAnd in the emergency department patient of the CT of the chest and abdomen and pelvis was done was suggestive possible mild diverticulosis and constipationsAnd patient was giving the IV antibiotic and decided to admit in the IMCU for further evaluations Since white count was elevated 15 but patient have a no fever But I saw the patient in the floor patient still in a lot of pain initially described from the back and the left lower quadrant Patient have recently started the Victoza by the beach attendant and patient's noticed some more nausea and vomiting and patient's initial lipase was normal but second lipase was elevated to up to 900 range Patient's denied any chest pain denied any shortness of the breath Patient was recently get the testosterone injection last week Discussed with the patient and the on the bedside and will order the MRI of the LS spine Past Medical History Cardiac Medical History: Reports: Coronary Artery Disease, Hyperlipidema, Hypertension Denies: Myocardial Infarction - 3 HEART CATHERIZATION Pulmonary Medical History: Denies: Asthma Neurological Medical History: Reports: Ischemic CVA Denies: Seizures Endocrine Medical History: Reports: Diabetes Mellitus Type 1, Diabetes Mellitus Type 2 Renal/ Medical History: Reports: Chronic Kidney Disease GI Medical History: Reports: Gastroesophageal Reflux Disease Denies: Hepatitis, Hiatal Hernia Musculoskeltal Medical History: Reports: Arthritis Musculoskeletal History Note: Chronic back pain in the neck pain History of the discitis and patient was admitted to the [facility] and the source most likely from insulin pump Psychiatric Medical History: Reports: Post Traumatic Stress Disorder, Other Hematology: Denies: Anemia, Sickle Cell Disease Past Surgical History Past Surgical History: Reports: Cardiac Catheterization - x3, Orthopedic Surgery - R Knee Denies: Pacemaker Social History Smoking Status: Never Smoker Frequency of Alcohol Use: None Hx Recreational Drug Use: No Drugs: None Hx Prescription Drug Abuse: No - Advance Directive Resuscitation Status: Full Code Family History Family History: Reviewed & Not Pertinent Parental Family History Reviewed: Yes Children Family History Reviewed: Yes Sibling(s) Family History Reviewed.: Yes Medication/Allergy Home Medications: Amlodipine Besylate/Valsartan [Exforge 10-320 mg Tablet] 1 tab PO DAILY Aspirin [Aspirin 325 mg Tablet] 325 mg PO DAILY 04/01/17 Carvedilol [Coreg 3.125 mg Tablet] 3.125 mg PO Q12 04/01/17 Cholesterolized Hydrophilic Ointment 1 applic TOP BID 04/01/17 Clotrimazole 1 applic TOP QHS 04/01/17 Diclofenac Epolamine [Flector] 1 patch TOP BID 04/01/17 Escitalopram Oxalate [Lexapro] 20 mg PO DAILYP PRN 04/01/17 Ezetimibe [Zetia 10 mg Tablet] 10 mg PO DAILY 04/01/17 Furosemide [Lasix 40 mg Tablet] 40 mg PO DAILY 04/01/17 Insulin Aspart [Novolog Insulin (Aspart) 100 unit/mL] See Protocol PUMP CONTINUOUS PRN 04/01/17 Isosorbide Mononitrate [Imdur 60 mg Tablet.er] 60 mg PO DAILY 04/01/17 Liraglutide [Victoza 2-Selvin] 0.1 ml SQ DAILY 04/01/17 Lubiprostone [Amitiza 24 Mcg Capsule] 24 mcg PO BID 04/01/17 Nitroglycerin [Nitrostat 0.4 mg (1/150 Gr) Tabs 25/Bottle] 0.4 mg SL Q5MP PRN Omeprazole 20 mg PO DAILY 04/01/17 Pitavastatin Calcium [Livalo] 4 mg PO DAILY 04/01/17 Polyethylene Glycol 3350 [Miralax Powder 17 gm/Packet] 1 packet PO BID 04/01/17 Pregabalin [Lyrica 100 mg Capsule] 100 mg PO BIDP PRN 04/01/17 Testosterone Cypionate [Depo-Testosterone] 400 units IM [id number] 04/01/17 Urea [Urea-C40] 1 applic TOP BID 04/01/17 Allergies/Adverse Reactions: Penicillins Allergy (Verified 03/31/17 18:02) Avbituf-Hay-Gkw Reductase Inhibitor Allergy (Verified 03/31/17 18:02) Review of Systems Constitutional: PRESENT: fatigue, weakness. ABSENT: chills, fever(s), headache( s), weight gain, weight loss Eyes: ABSENT: visual disturbances Ears: ABSENT: hearing changes Cardiovascular: ABSENT: chest pain, dyspnea on exertion, edema, orthropnea, palpitations Respiratory: ABSENT: cough, hemoptysis Gastrointestinal: PRESENT: abdominal pain, nausea, vomiting. ABSENT: constipation, diarrhea, hematemesis, hematochezia Genitourinary: ABSENT: dysuria, hematuria Musculoskeletal: PRESENT: back pain, muscle weakness. ABSENT: joint swelling Integumentary: ABSENT: rash, wounds Neurological: ABSENT: abnormal gait, abnormal speech, confusion, dizziness, focal weakness, syncope Psychiatric: ABSENT: anxiety, depression, homidical ideation, suicidal ideation Endocrine: ABSENT: cold intolerance, heat intolerance, menstrual abnormalities, polydipsia, polyuria Hematologic/Lymphatic: ABSENT: easy bleeding, easy bruising, lymphadenopathy Physical Exam Vital Signs: Temp Pulse Resp BP Pulse Ox 98.1 F 82 15 163/93 H 95 04/01/17 12:00 04/01/17 12:00 04/01/17 12:00 04/01/17 12:00 04/01/17 12:00 Intake & Output 03/31/17 04/01/17 04/02/17 06:59 06:59 06:59 Weight 84.6 kg General appearance: PRESENT: no acute distress, well-developed, well-nourished Head exam: PRESENT: atraumatic, normocephalic Eye exam: PRESENT: conjunctiva pink, EOMI, PERRLA. ABSENT: scleral icterus Ear exam: PRESENT: normal external ear exam Mouth exam: PRESENT: moist, tongue midline Neck exam: PRESENT: full ROM. ABSENT: carotid bruit, JVD, lymphadenopathy, thyromegaly Respiratory exam: PRESENT: clear to auscultation zuleima Cardiovascular exam: PRESENT: RRR. ABSENT: diastolic murmur, rubs, systolic murmur Pulses: PRESENT: normal dorsalis pedis pul, +2 pedal pulses bilateral Vascular exam: PRESENT: normal capillary refill GI/Abdominal exam: PRESENT: normal bowel sounds, soft, tenderness. ABSENT: distended, guarding, mass, organolmegaly, rebound Additonal comments: Left lower quadrant Rectal exam: PRESENT: deferred Extremities exam: ABSENT: full ROM, left AKA, right AKA, left BKA, right BKA, calf tenderness, joint swelling, pedal edema, tenderness, other Musculoskeletal exam: PRESENT: tenderness Additional comments: In the lower spine Neurological exam: PRESENT: alert, awake, oriented to person, oriented to place , oriented to time, oriented to situation, CN II-XII grossly intact. ABSENT: motor sensory deficit Psychiatric exam: PRESENT: appropriate affect, normal mood. ABSENT: homicidal ideation, suicidal ideation Skin exam: PRESENT: dry, intact, warm. ABSENT: cyanosis, rash Results Laboratory Results: 04/01/17 06:07 04/01/17 04/01/17 04/01/17 06:07 06:07 06:07 Carbonic Acid HCO3/H2CO3 Ratio ABG pH ABG pCO2 ABG pO2 ABG HCO3 ABG O2 Saturation ABG Base Excess FiO2 Sodium Potassium Chloride Carbon Dioxide Anion Gap BUN Creatinine Est GFR ( Amer) Est GFR (Non-Af Amer) Glucose Calcium Phosphorus 4.0 Magnesium Ammonia < 8.7 L C-Reactive Protein Amylase 249 H Lipase 916.0 H TSH 3.87 Free T4 1.01 04/01/17 04/01/17 04/01/17 06:07 06:07 06:10 Carbonic Acid 1.39 H HCO3/H2CO3 Ratio 18:1 ABG pH 7.37 ABG pCO2 46.3 H ABG pO2 56.0 L ABG HCO3 25.9 ABG O2 Saturation 88.1 L ABG Base Excess 0.1 FiO2 ROOM AIR Sodium 144.3 Potassium 3.5 L Chloride 102 Carbon Dioxide 24 Anion Gap 18 BUN 21 H Creatinine 2.76 H Est GFR ( Amer) 28 L Est GFR (Non-Af Amer) 23 L Glucose 125 H Calcium 9.7 Phosphorus Magnesium 1.6 Ammonia C-Reactive Protein 157.6 H Amylase Lipase TSH Free T4 04/01/17 04/01/17 04/01/17 06:07 06:07 06:07 Creatine Kinase 168 Cancelled CK-MB (CK-2) Troponin I NT-Pro-B Natriuret Pep Cancelled 04/01/17 04/01/17 04/01/17 06:07 13:19 13:19 Creatine Kinase 367 H CK-MB (CK-2) 1.71 2.80 Troponin I 0.038 0.049 NT-Pro-B Natriuret Pep 586 Impressions: Abdomen/Pelvis CT 03/31/17 18:45 IMPRESSION: NO SIGNIFICANT OR ACUTE PROCESS IN THE ABDOMEN OR PELVIS. Chest CT 03/31/17 18:45 IMPRESSION: NO SIGNIFICANT FINDING ON NON-CONTRASTED CHEST CT. Lumbar Spine MRI 04/01/17 00:00 IMPRESSION: 1. Lumbar spondylosis without critical central stenosis. Disc disease looks most pronounced at L5-S1. Here, there is mild mass effect on the right S1 nerve root. Exuberant facet arthropathy as well. Marrow edema regionally has resolved, however. Assessment & Plan - Diagnosis (1) Abdominal pain Qualifiers: Abdominal location: lower abdomen, unspecified Is this a current diagnosis for this admission?: Yes Plan: Patients have a significant pain in the left lower quadrant given the patient CT abdomen and pelvis was nothing acute except some constipation but presumed possible diverticulitis versus pancreatitis we will put the N.p.o. and start the patient on Cipro and Flagyl and consider general surgery (2) Nausea & vomiting Qualifiers: Vomiting type: unspecified Is this a current diagnosis for this admission?: Yes Plan: Possible side effect of the Victoza with currently hold the Victoza (3) Elevated lipase Is this a current diagnosis for this admission?: Yes Plan: Possible mild pancreatitis related to the Victoza (4) Severe back pain Is this a current diagnosis for this admission?: Yes Plan: Will get the MRI of the LS spine to rule out any infectious process and also consult the pain management and patients can be relieved with the morphine will continues to morphine (5) Chronic kidney disease Qualifiers: Chronic kidney disease stage: stage 3 (moderate) Qualified Code(s): N18.3 - Chronic kidney disease, stage 3 (moderate) Is this a current diagnosis for this admission?: Yes Plan: Continues to IV fluid (6) Hypokalemia Is this a current diagnosis for this admission?: Yes Plan: Replace the potassiums (7) Hypertension Qualifiers: Hypertension type: essential hypertension Qualified Code(s): I10 - Essential (primary) hypertension Is this a current diagnosis for this admission?: Yes Plan: Continues to current medications (8) Type 2 diabetes mellitus Qualifiers: Diabetes mellitus complication status: with unspecified complications Is this a current diagnosis for this admission?: Yes Plan: Continues insulin pump and sliding scale and hold the Victoza (9) Coronary artery disease Qualifiers: Coronary Disease-Associated Artery/Lesion type: unspecified vessel or lesion type Is this a current diagnosis for this admission?: Yes Plan: Rule out acute coronary syndromes (10) Erectile dysfunction Qualifiers: Erectile dysfunction type: unspecified Qualified Code(s): N52.9 - Male erectile dysfunction, unspecified Is this a current diagnosis for this admission?: Yes Plan: Status post penile pump implant and patient is currently in a testosterone and follow with urologist (11) Posttraumatic stress disorder Is this a current diagnosis for this admission?: Yes Plan: Currently on the Lexapro (12) Leukocytosis Qualifiers: Leukocytosis type: unspecified Qualified Code(s): D72.829 - Elevated white blood cell count, unspecified Is this a current diagnosis for this admission?: Yes Plan: Will rule out any sepsis - Time Time Spent: 50 to 70 Minutes Medications reviewed and adjusted accordingly: Yes Anticipated discharge: Home Within: Other - Inpatient Certification Medical Necessity: Need Close Monitoring Due to Risk of Patient Decompensation, Need For IV Fluids, Need for IV Antibiotics 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
[2017-04-01] MEDS ORDERED: ESCITALOPRAM OXALATE 10 MG TABLET PO PRN (15:18)
[2017-04-01 15:21] LABS: APPEARANCE,URINE SLIGHTLY-CLOUDY; BILIRUBIN,URINE NEGATIVE (NEGATIVE); COLOR,URINE YELLOW; GLUCOSE, URINE 50 mg/dL (NEGATIVE); KETONES,URINE NEGATIVE (NEGATIVE); LEUKOCYTE ESTERASE,URINE NEGATIVE (NEGATIVE); NITRITE,URINE NEGATIVE (NEGATIVE); PROTEIN,URINE >=500 mg/dL (NEGATIVE); UROBILINOGEN,URINE NEGATIVE mg/dL (<2.0)
[2017-04-01 15:37] LABS: URINE AMPHETAMINES SCREEN NEGATIVE; URINE BARBITURATES SCREEN NEGATIVE; URINE COCAINE SCREEN NEGATIVE; URINE MARIJUANA (THC) SCREEN NEGATIVE; URINE METHADONE SCREEN NEGATIVE; URINE PHENCYCLIDINE SCREEN NEGATIVE
[2017-04-01 15:39] LABS: URINE BENZODIAZEPINES SCREEN UNCONFIRMED POSITIVE
--- NOTE | 2017-04-01 17:38 | CONSULTATION REPORT E ---
Consultation Report NAME: CAROL JENSEN : 1945 AGE: 71Y DATE: 04/01/2017 606 A TO: SILVIA NOEL M.D. FROM: NICHOL VASQUEZ M.D. Requesting Physician REASON FOR CONSULTATION: Acute on chronic low back pain. CHIEF COMPLAINT: Lower back pain and left flank pain and left lower quadrant abdominal pain. HISTORY OF PRESENT ILLNESS: The patient is a 71-year-old male with a longstanding history of chronic back and neck pain and diabetes, admitted after an acute on chronic back pain flare today to [facility]. Patient has a long-standing history of chronic back pain that he relates to his time in the and [id number], with periods of acute on chronic flares. He notes a history of diskitis in the past that was treated many, many years ago, but denies any back surgery, injections or manipulation of his lumbar spine He notes that he has been seen by Dr. Latif and Dr. Valencia in Neurology, and has another followup in Neurology for consideration for other therapies for his chronic back pain, including injections. He notes prior imaging and NCS/EMG. Of note, he does not follow with specific pain management at this time. He notes that he has usually used a mixture of Valium 5 mg p.r.n. for muscle spasms and hydrocodone 5 mg with Tylenol for severe pain, with occasional periods of use of tramadol for lesser pain, provided by his primary care. He notes a long-standing history of diabetic neuropathy as well to his lower extremities, for which he is on Lyrica. He presents primarily with low back pain that can radiate to both sides, more on the left than right, but also left flank pain and left lower quadrant abdominal pain. He notes that he did have a bowel movement recently, but he did not feel it was complete, and has had issues with constipation in the past related to his medical conditions. He notes a history of diverticulosis that he was told after a colonoscopy of note. He notes that he continues to have nausea related to his pain flare and recent medication changes as well. He notes that he has been given morphine, which has made him very sleepy, but has helped with the pain. He denies any side effects, other than sedation from the medication. He notes that he does have a bowel regimen at home, but he still suffers from constipation. He notes the pain in the back is constant. It can be sharp and dull and ache and deep at times. He notes the medications he had had in the past typically help with his pain. He notes that increased activity can trigger some of his pain flares. He denies any specific trauma, falls or injury related to the recent flare. He notes that he has recently started Victoza by his machine overhauler and has noted some nausea related to that, as well. He denies any numbness or weakness that is new to his lower extremities. He does have history of renal failure and which is currently followed by his primary. PAST MEDICAL HISTORY: 1. Cardiac: Coronary artery disease. 2. Hyperlipidemia. 3. Hypertension. 4. Diabetes. 5. Neurologic history: Prior CVA. 6. Chronic kidney disease. 7. GERD. 8. Osteoarthritis. 9. Prior history of diskitis. 10. Noted PTSD. PAST SURGICAL HISTORY: 1. Cardiac catheterization. 2. Right knee replacement. 3. Placement of an insulin pump. SOCIAL HISTORY: Denies smoking and illicits or alcohol. FAMILY HISTORY: Noncontributory. HOME MEDICATIONS: 1. For pain, as noted, hydrocodone p.r.n. 5 mg/325. 2. Lyrica 100 mg p.o. b.i.d. 3. Flector patches as needed q.12. ALLERGIES: 1. PENICILLIN. 2. STATINS. REVIEW OF SYSTEMS: Otherwise unchanged from his initial admission today. Please see note by Dr. Vasquez on 04/01. PHYSICAL EXAMINATION: GENERAL APPEARANCE: Arousable, Laying in bed, in no acute distress, sleeping. HEENT: Atraumatic, normocephalic. RESPIRATORY: Clear to auscultation bilaterally. CARDIOVASCULAR: Regular rate and rhythm. ABDOMEN: Normal bowel sounds. Soft, nontender. No rebound, guarding or distention. Some tenderness to left lower quadrant, very mild. EXTREMITIES: Warm, well-perfused. Moving all extremities x4. MUSCULOSKELETAL: Bilateral tenderness to his diffuse lumbar paravertebral muscles and lumbar spine. NEUROLOGIC: Alert and oriented x3. Cranial nerves II through XII intact. Moving all extremities. PSYCHIATRIC: Normal affect, normal mood. LABORATORY DATA: Noted creatinine of 2.76. Noted white blood count of 15. Noted abdominal and pelvis CT with no significant changes. Chest CT with no significant findings. Lumbar spine showing lumbar spondylosis without critical central stenosis. ASSESSMENT AND PLAN: 1. Abdominal pain. Continue workup and treatment. Noted negative imaging. Presumed diverticulitis versus pancreatitis. He is currently n.p.o. and started on antibiotics. Will continue IV pain medication in interim until able to take oral. 2. Nausea and vomiting related to abdominal pain vs medication from DM or related to gastroparesis. Continue his promethazine p.r.n., watching for sedation. 3. Severe chronic lumbar spondylosis. MRI reviewed. No current signs of infectious process. Would consider changing from morphine to hydromorphone, given his renal clearance to 0.2 mg IV q.6 hours p.r.n., also given his sedation, to avoid accumulation in his renal disease. Would also consider reducing his Lyrica to 100 mg once a day, with plan for renal dosing to 75 mg, after slow taper down. Continue to follow his chronic kidney disease and continue his Flector patches. Would avoid NSAIDs, given his renal issues and bowel disease. 4. Given his constipation, would still proceed with his current bowel regimen, n.p.o., stimulants. Consideration for more aggressive whole outpatient bowel regimen, if he is going to continue on opioids. 5. We have discussed outpatient consultation and may schedule followup with patient for his chronic back issues and lumbar spondylosis for consideration for nonopioid therapy per patient preference as outpatient. Please feel free to contact if further assistance to convert from either IV opioid therapy to oral medication, once patient is moving toward discharge and oral intake DICTATING PHYSICIAN: SILVIA NOEL M.D. [id number] PHY#: [id number] ID: [id number] JOB#: [id number] ACCT: [id number] cc:SILVIA NOEL M.D. > [facility]
[2017-04-01] MEDS: POLYETHYLENE GLYCOL 3350 POWDER 17 GM/1 PACKET PO SCH (17:47)
[2017-04-01] MEDS: LUBIPROSTONE 24 MCG CAPSULE PO SCH (17:47)
[2017-04-01] MEDS ORDERED: (PENDING PHARMACY ID) (Diclofenac Epolamine [Flector] 1 PATCH) TOP SCH (18:00)
[2017-04-01] MEDS ORDERED: BISACODYL 10 MG SUPP.RECT PR ONE (19:00)
--- NOTE | 2017-04-01 20:47 | PDOC CONSULTATION ---
Consultation Consult Date: 04/01/17 Attending physician:: KRYSTYNA VÁSQUEZ History of Present Illness Admission Date/PCP: 04/01/17 03:44 KODY VARGHESE MD Patient complains of: Left groin and hip pain. Some constipation. History of Present Illness: CAROL JENSEN is a 71 year old male This is a 71-year-old male with a significant history of the type 2 diabetes mellitus currently on insulin pump and see the ICU. He also has a history of erectile dysfunction currently see a urologist and had a penile implat a# of years ago. He has been on testosterone injections and has a history of coronary artery disease and a history of chronic back pain and history of the discitis in the past. He was admitted to the [facility] for that in the past. Pt says this has been a chronic thing and comes and goes. It has gotten this bad before. He came to the emergency department last night with a complaint of lower back pain radiating to the bilaterally initially left and the right side and patient was also complaining of his left lower quadrant pain. And was not feeling well and patient unable to move unable to walk. In the emergency department patient had a CT of the chest, abdomen and pelvis that was suggestive possible mild diverticulosis and constipation but no definite inflammtory changes(see Report). Patient has recently started on Victoza by the surgical supplies sterilizer and patient's noticed some more nausea and vomiting and patient's initial lipase was normal but second lipase was elevated to up to 900 range I was asked to see the patient to evaluate for his abdominal pain and possible diverticulitis. Past Medical History Cardiac Medical History: Reports: Coronary Artery Disease, Hyperlipidema, Hypertension Denies: Myocardial Infarction - 3 HEART CATHERIZATION Pulmonary Medical History: Denies: Asthma Neurological Medical History: Reports: Ischemic CVA Denies: Seizures Endocrine Medical History: Reports: Diabetes Mellitus Type 1, Diabetes Mellitus Type 2 Renal/ Medical History: Reports: Chronic Kidney Disease GI Medical History: Reports: Gastroesophageal Reflux Disease Denies: Hepatitis, Hiatal Hernia Musculoskeltal Medical History: Reports: Arthritis Psychiatric Medical History: Reports: Post Traumatic Stress Disorder, Other Hematology: Denies: Anemia, Sickle Cell Disease Past Surgical History Past Surgical History: Reports: Cardiac Catheterization - x3, Orthopedic Surgery - R Knee, Other - No previous abdominal surgery. Denies: Pacemaker Social History Smoking Status: Never Smoker Frequency of Alcohol Use: None Hx Recreational Drug Use: No Drugs: None Hx Prescription Drug Abuse: No - Advance Directive Resuscitation Status: Full Code Family History Family History: Reviewed & Not Pertinent Parental Family History Reviewed: Yes Children Family History Reviewed: Yes Sibling(s) Family History Reviewed.: Yes Medication/Allergy Home Medications: Amlodipine Besylate/Valsartan [Exforge 10-320 mg Tablet] 1 tab PO DAILY Aspirin [Aspirin 325 mg Tablet] 325 mg PO DAILY 04/01/17 Carvedilol [Coreg 3.125 mg Tablet] 3.125 mg PO Q12 04/01/17 Cholesterolized Hydrophilic Ointment 1 applic TOP BID 04/01/17 Clotrimazole 1 applic TOP QHS 04/01/17 Diclofenac Epolamine [Flector] 1 patch TOP BID 04/01/17 Escitalopram Oxalate [Lexapro] 20 mg PO DAILYP PRN 04/01/17 Ezetimibe [Zetia 10 mg Tablet] 10 mg PO DAILY 04/01/17 Furosemide [Lasix 40 mg Tablet] 40 mg PO DAILY 04/01/17 Insulin Aspart [Novolog Insulin (Aspart) 100 unit/mL] See Protocol PUMP CONTINUOUS PRN 04/01/17 Isosorbide Mononitrate [Imdur 60 mg Tablet.er] 60 mg PO DAILY 04/01/17 Liraglutide [Victoza 2-Selvin] 0.1 ml SQ DAILY 04/01/17 Lubiprostone [Amitiza 24 Mcg Capsule] 24 mcg PO BID 04/01/17 Nitroglycerin [Nitrostat 0.4 mg (1/150 Gr) Tabs 25/Bottle] 0.4 mg SL Q5MP PRN Omeprazole 20 mg PO DAILY 04/01/17 Pitavastatin Calcium [Livalo] 4 mg PO DAILY 04/01/17 Polyethylene Glycol 3350 [Miralax Powder 17 gm/Packet] 1 packet PO BID 04/01/17 Pregabalin [Lyrica 100 mg Capsule] 100 mg PO BIDP PRN 04/01/17 Testosterone Cypionate [Depo-Testosterone] 400 units IM [id number] 04/01/17 Urea [Urea-C40] 1 applic TOP BID 04/01/17 Allergies/Adverse Reactions: Penicillins Allergy (Verified 03/31/17 18:02) [id number] Reductase Inhibitor Allergy (Verified 03/31/17 18:02) Review of Systems All systems: reviewed and no additional remarkable complaints except as stated - Chronic history of on and off low back pain. Has been seen the pain medication doctor. Stated to myself and the ICU nurse that they had discussed his recent low back pain with extension to his left leg with his pain medicine doctor and he is planning to see a neurosurgeon early in April. Physical Exam Vital Signs: Temp Pulse Resp BP Pulse Ox 99.0 F 118 H 22 H 157/81 H 94 04/01/17 17:08 04/01/17 19:00 04/01/17 18:44 04/01/17 18:44 04/01/17 18:44 Intake & Output 03/31/17 04/01/17 04/02/17 06:59 06:59 06:59 Intake Total 1341 Output Total 250 Balance 1091 Weight 84.6 kg GI/Abdominal exam: PRESENT: other - Examination reveals rounded abdomen. Some voluntary guarding. When the patient takes a deep breath his abdomen is rounded but soft. No specific tenderness in the left lower quadrant now. No palpable hernias with cough in the groins.. ABSENT: hernia Rectal exam: PRESENT: deferred Gentrourinary exam: PRESENT: other - Prosthesis within the scrotum for his penile implant. No signs of infection. Results Laboratory Results: 04/01/17 06:07 04/01/17 04/01/17 04/01/17 06:07 06:07 06:07 Carbonic Acid HCO3/H2CO3 Ratio ABG pH ABG pCO2 ABG pO2 ABG HCO3 ABG O2 Saturation ABG Base Excess FiO2 Sodium Potassium Chloride Carbon Dioxide Anion Gap BUN Creatinine Est GFR ( Amer) Est GFR (Non-Af Amer) Glucose Calcium Phosphorus 4.0 Magnesium Ammonia < 8.7 L C-Reactive Protein Amylase 249 H Lipase 916.0 H TSH 3.87 Free T4 1.01 Urine Color Urine Appearance Urine pH Ur Specific [place] Urine Protein Urine Glucose (UA) Urine Ketones Urine Blood Urine Nitrite Ur Leukocyte Esterase Urine WBC (Auto) Urine RBC (Auto) 04/01/17 04/01/17 04/01/17 06:07 06:07 06:10 Carbonic Acid 1.39 H HCO3/H2CO3 Ratio 18:1 ABG pH 7.37 ABG pCO2 46.3 H ABG pO2 56.0 L ABG HCO3 25.9 ABG O2 Saturation 88.1 L ABG Base Excess 0.1 FiO2 ROOM AIR Sodium 144.3 Potassium 3.5 L Chloride 102 Carbon Dioxide 24 Anion Gap 18 BUN 21 H Creatinine 2.76 H Est GFR ( Amer) 28 L Est GFR (Non-Af Amer) 23 L Glucose 125 H Calcium 9.7 Phosphorus Magnesium 1.6 Ammonia C-Reactive Protein 157.6 H Amylase Lipase TSH Free T4 Urine Color Urine Appearance Urine pH Ur Specific [place] Urine Protein Urine Glucose (UA) Urine Ketones Urine Blood Urine Nitrite Ur Leukocyte Esterase Urine WBC (Auto) Urine RBC (Auto) 04/01/17 15:03 Carbonic Acid HCO3/H2CO3 Ratio ABG pH ABG pCO2 ABG pO2 ABG HCO3 ABG O2 Saturation ABG Base Excess FiO2 Sodium Potassium Chloride Carbon Dioxide Anion Gap BUN Creatinine Est GFR ( Amer) Est GFR (Non-Af Amer) Glucose Calcium Phosphorus Magnesium Ammonia C-Reactive Protein Amylase Lipase TSH Free T4 Urine Color YELLOW Urine Appearance SLIGHTLY-CLOUDY Urine pH 5.0 Ur Specific [place] 1.010 Urine Protein >=500 H Urine Glucose (UA) 50 H Urine Ketones NEGATIVE Urine Blood SMALL H Urine Nitrite NEGATIVE Ur Leukocyte Esterase NEGATIVE Urine WBC (Auto) 1 Urine RBC (Auto) 5 04/01/17 04/01/17 04/01/17 06:07 06:07 06:07 Creatine Kinase 168 Cancelled CK-MB (CK-2) Troponin I NT-Pro-B Natriuret Pep Cancelled 04/01/17 04/01/17 04/01/17 06:07 13:19 13:19 Creatine Kinase 367 H CK-MB (CK-2) 1.71 2.80 Troponin I 0.038 0.049 NT-Pro-B Natriuret Pep 586 Impressions: Abdomen/Pelvis CT 03/31/17 18:45 IMPRESSION: NO SIGNIFICANT OR ACUTE PROCESS IN THE ABDOMEN OR PELVIS. Chest CT 03/31/17 18:45 IMPRESSION: NO SIGNIFICANT FINDING ON NON-CONTRASTED CHEST CT. Lumbar Spine MRI 04/01/17 00:00 IMPRESSION: 1. Lumbar spondylosis without critical central stenosis. Disc disease looks most pronounced at L5-S1. Here, there is mild mass effect on the right S1 nerve root. Exuberant facet arthropathy as well. Marrow edema regionally has resolved, however. Assessment & Plan - Diagnosis (1) Abdominal pain Qualifiers: Abdominal location: lower abdomen, unspecified Qualified Code(s): R10.30 - Lower abdominal pain, unspecified Is this a current diagnosis for this admission?: Yes Plan: Reviewed CT scan of the abdomen and pelvis with no signs of acute inflammation within the abdomen. Doubt his pain is related to diverticulitis. Also reviewed MR ordered by Dr. Vásquez earlier today. This shows arthritic changes in his low back and significant changes at the L5-S1 level. No further workup for his abdomen is planned at this time. Agree with repeat lipase for the morning see plan below (2) Diverticulitis large intestine Qualifiers: Diverticulitis bleeding: without bleeding Diverticulitis complication: without perforation or abscess Qualified Code(s): K57.32 - Diverticulitis of large intestine without perforation or abscess without bleeding Is this a current diagnosis for this admission?: No Plan: No further workup at this time. CT scan not suggestive of same. Patient may have some obstipation and have some margination of his right white cells related to vomiting that he did yesterday. Agree with repeat lipase in a.m. (3) Elevated lipase Is this a current diagnosis for this admission?: Yes Plan: Repeat lipase in the morning 04/02/[address] Vásquez's knowledge of possibility related to Victoza.
[2017-04-01] MEDS: CARVEDILOL 3.125 MG TABLET PO SCH (21:26)
[2017-04-01 22:14] LABS: CREATINE KINASE MB 4.42 ng/mL (<4.55); TROPONIN I 0.049 ng/mL
[2017-04-02] MEDS: LANSOPRAZOLE 15 MG TAB.RAP.DR PO SCH (06:34)
[2017-04-02] MEDS: HEPARIN SOD (PORCINE) 5,000 UNIT/ML 1 ML SYRINGE SUBCUT SCH ×3 (06:34→22:27)
[2017-04-02] MEDS: METRONIDAZOLE 500 MG/NS RTU 100 ML IV SCH ×3 (06:34→18:40)
[2017-04-02 06:36] LABS: ABSOLUTE BASOPHILS # (AUTO) 0.1 10^3/uL (0.0-0.2); ABSOLUTE EOSINOPHILS # (AUTO) 0.1 10^3/uL (0.0-0.6); ABSOLUTE LYMPHOCYTES (AUTO) 1.2 10^3/uL (0.5-4.7); ABSOLUTE MONOCYTES (AUTO) 1.5 10^3/uL (0.1-1.4); ABSOLUTE NEUT (AUTO) 8.3 10^3/uL (1.7-8.2); BASOPHILS % (AUTO) 0.6 % (0-2); EOSINOPHILS % (AUTO) 0.6 % (0-6); HEMATOCRIT 35.8 % (37.9-51.0); LYMPHOCYTES % (AUTO) 11.2 % (13-45); MEAN CORPUSCULAR HEMOGLOBIN 28.4 pg (27.0-33.4); MEAN CORPUSCULAR HGB CONC 33.9 g/dL (32.0-36.0); MEAN CORPUSCULAR VOLUME 84 fl (80-97); MONOCYTES % (AUTO) 13.3 % (3-13); PLATELET COUNT 215 10^3/uL (150-450); RED BLOOD COUNT 4.27 10^6/uL (4.35-5.55); RED CELL DISTRIBUTION WIDTH 15.9 % (11.5-14.0); SEGMENTED NEUTROPHILS % (AUTO) 74.3 % (42-78); TOTAL CELLS COUNTED % (AUTO) 100 %; WHITE BLOOD COUNT 11.1 10^3/uL (4.0-10.5)
[2017-04-02 06:37] LABS: HEMOGLOBIN 12.1 g/dL (13.5-17.0)
[2017-04-02 06:56] LABS: ALANINE AMINOTRANSFERASE 25 U/L (21-72); ALBUMIN 2.8 g/dL (3.5-5.0); ALKALINE PHOSPHATASE 44 U/L (38-126); ANION GAP 8 (5-19); ASPARTATE AMINO TRANSFERASE 25 U/L (17-59); BILIRUBIN,DIRECT 0.2 mg/dL (0.0-0.4); BILIRUBIN,TOTAL 0.6 mg/dL (0.2-1.3); BLOOD UREA NITROGEN 23 mg/dL (7-20); CALCIUM 8.2 mg/dL (8.4-10.2); CARBON DIOXIDE 28 mmol/L (22-30); CHLORIDE 104 mmol/L (98-107); CHOLESTEROL 181.62 mg/dL (0-200); GLUCOSE 210 mg/dL (75-110); POTASSIUM 3.1 mmol/L (3.6-5.0); SODIUM 139.9 mmol/L (137-145); TOTAL PROTEIN 5.4 g/dL (6.3-8.2); TRIGLYCERIDES 94 mg/dL (<150)
[2017-04-02 07:08] LABS: DIRECT LDL 111 mg/dL (<100)
[2017-04-02] MEDS: MORPHINE SULFATE 10 MG/ML INJ IV PRN ×2 (08:03→18:35)
[2017-04-02] MEDS: INSULIN LISPRO 100 UNIT/ML 3 ML VIAL SUBCUT PRN ×2 (08:03→12:27)
[2017-04-02] MEDS ORDERED: VALSARTAN PO SCH (10:00)
[2017-04-02] MEDS ORDERED: (PENDING PHARMACY ID) (Pitavastatin Calcium [Livalo] 4 MG) PO SCH (10:00)
[2017-04-02] MEDS ORDERED: AMLODIPINE BESYLATE PO SCH (10:00)
[2017-04-02] MEDS: CIPROFLOXACIN 400 MG/D5W RTU 400 MG/200 ML RTUPB IV SCH ×2 (10:59→22:27)
[2017-04-02] MEDS: VALSARTAN 160 MG TABLET PO SCH (10:59)
[2017-04-02] MEDS: CARVEDILOL 3.125 MG TABLET PO SCH ×2 (11:00→22:27)
[2017-04-02] MEDS: AMLODIPINE BESYLATE 10 MG TABLET PO SCH (11:00)
[2017-04-02] MEDS: POLYETHYLENE GLYCOL 3350 POWDER 17 GM/1 PACKET PO SCH ×3 (11:00→18:29)
[2017-04-02] MEDS: EZETIMIBE 10 MG TABLET PO SCH (11:01)
[2017-04-02] MEDS: POTASSIUM CHLORIDE 10 MEQ TABLET.SA PO SCH ×2 (11:01→22:27)
[2017-04-02] MEDS: ASPIRIN 325 MG TABLET PO SCH (11:01)
[2017-04-02] MEDS: ISOSORBIDE MONONITRATE 60 MG TAB.ER.24H PO SCH (11:01)
[2017-04-02] MEDS: LUBIPROSTONE 24 MCG CAPSULE PO SCH ×2 (11:01→18:30)
[2017-04-02] MEDS: DICYCLOMINE HCL INJ 20 MG/2 ML AMPULE IM SCH (11:02)
[2017-04-02] MEDS: DOCUSATE SODIUM 100 MG CAPSULE PO SCH ×2 (11:14→18:40)
[2017-04-02] MEDS ORDERED: PREGABALIN 100 MG CAPSULE PO PRN (13:07)
[2017-04-02] MEDS ORDERED: PREGABALIN 50 MG CAPSULE PO PRN (13:12)
--- NOTE | 2017-04-02 13:12 | PDOC PROGRESS REPORT ---
Subjective Progress Note for:: 04/02/17 Subjective:: Patient is still complaining of back pain and radiating both right and the left side Patient MRI of the LS spine did not show any very acute changes and seen by the pain management and suggested continues the pain medications Patient seen by the general surgery and suggests no sign of any diverticulitis or no sign of any pancreatitis Patient otherwise denied any abdominal pain except ongoing back pain in the flank pain No nausea no vomitingToday Reason For Visit: UNEXPLAINED ABDOMINAL PAIN,UNEXPLAINED Physical Exam Vital Signs: Temp Pulse Resp BP Pulse Ox 99.1 F 91 20 144/73 H 92 04/02/17 11:46 04/02/17 11:46 04/02/17 11:46 04/02/17 11:46 04/02/17 11:46 Intake & Output 04/01/17 04/02/17 04/03/17 06:59 06:59 06:59 Intake Total 1691 Output Total 1150 Balance 541 Weight 83.9 kg General appearance: PRESENT: no acute distress, well-developed, well-nourished Head exam: PRESENT: atraumatic, normocephalic Eye exam: PRESENT: conjunctiva pink, EOMI, PERRLA. ABSENT: scleral icterus Ear exam: PRESENT: normal external ear exam Mouth exam: PRESENT: moist, tongue midline Neck exam: PRESENT: full ROM. ABSENT: carotid bruit, JVD, lymphadenopathy, thyromegaly Respiratory exam: PRESENT: clear to auscultation zuleima Cardiovascular exam: PRESENT: RRR. ABSENT: diastolic murmur, rubs, systolic murmur Pulses: PRESENT: normal dorsalis pedis pul, +2 pedal pulses bilateral Vascular exam: PRESENT: normal capillary refill GI/Abdominal exam: PRESENT: normal bowel sounds, soft. ABSENT: distended, guarding, mass, organolmegaly, rebound, tenderness Rectal exam: PRESENT: deferred Extremities exam: ABSENT: pedal edema Neurological exam: PRESENT: alert, awake, oriented to person, oriented to place , oriented to time, oriented to situation, CN II-XII grossly intact. ABSENT: motor sensory deficit Psychiatric exam: PRESENT: appropriate affect, normal mood. ABSENT: homicidal ideation, suicidal ideation Skin exam: PRESENT: dry, intact, warm. ABSENT: cyanosis, rash Results Laboratory Results: 04/02/17 06:27 04/02/17 06:27 04/01/17 04/02/17 04/02/17 15:03 05:48 05:48 WBC Cancelled RBC Cancelled Hgb Cancelled Hct Cancelled MCV Cancelled MCH Cancelled MCHC Cancelled RDW Cancelled Plt Count Cancelled Seg Neutrophils % Cancelled Lymphocytes % Cancelled Monocytes % Cancelled Eosinophils % Cancelled Basophils % Cancelled Absolute Neutrophils Cancelled Absolute Lymphocytes Cancelled Absolute Monocytes Cancelled Absolute Eosinophils Cancelled Absolute Basophils Cancelled Sodium Cancelled Potassium Cancelled Chloride Cancelled Carbon Dioxide Cancelled Anion Gap Cancelled BUN Cancelled Creatinine Cancelled Est GFR ( Amer) Cancelled Est GFR (Non-Af Amer) Cancelled Glucose Cancelled Calcium Cancelled Total Bilirubin Cancelled AST Cancelled ALT Cancelled Alkaline Phosphatase Cancelled Total Protein Cancelled Albumin Cancelled Triglycerides Cancelled Cholesterol Cancelled LDL Cholesterol Direct Cancelled VLDL Cholesterol Cancelled HDL Cholesterol Cancelled Lipase Cancelled Urine Color YELLOW Urine Appearance SLIGHTLY-CLOUDY Urine pH 5.0 Ur Specific [place] 1.010 Urine Protein >=500 H Urine Glucose (UA) 50 H Urine Ketones NEGATIVE Urine Blood SMALL H Urine Nitrite NEGATIVE Ur Leukocyte Esterase NEGATIVE Urine WBC (Auto) 1 Urine RBC (Auto) 5 04/02/17 04/02/17 06:27 06:27 WBC 11.1 H RBC 4.27 L Hgb 12.1 L D Hct 35.8 L MCV 84 MCH 28.4 MCHC 33.9 RDW 15.9 H Plt Count 215 Seg Neutrophils % 74.3 Lymphocytes % 11.2 L Monocytes % 13.3 H Eosinophils % 0.6 Basophils % 0.6 Absolute Neutrophils 8.3 H Absolute Lymphocytes 1.2 Absolute Monocytes 1.5 H Absolute Eosinophils 0.1 Absolute Basophils 0.1 Sodium 139.9 Potassium 3.1 L Chloride 104 Carbon Dioxide 28 Anion Gap 8 BUN 23 H Creatinine 2.43 H Est GFR ( Amer) 32 L Est GFR (Non-Af Amer) 27 L Glucose 210 H Calcium 8.2 L Total Bilirubin 0.6 AST 25 ALT 25 Alkaline Phosphatase 44 Total Protein 5.4 L Albumin 2.8 L Triglycerides 94 Cholesterol 181.62 LDL Cholesterol Direct 111 H VLDL Cholesterol 19.0 HDL Cholesterol 43 Lipase 94.0 Urine Color Urine Appearance Urine pH Ur Specific [place] Urine Protein Urine Glucose (UA) Urine Ketones Urine Blood Urine Nitrite Ur Leukocyte Esterase Urine WBC (Auto) Urine RBC (Auto) 04/01/17 04/01/17 04/01/17 06:07 06:07 06:07 Creatine Kinase 168 Cancelled CK-MB (CK-2) Troponin I NT-Pro-B Natriuret Pep Cancelled 04/01/17 04/01/17 04/01/17 06:07 13:19 13:19 Creatine Kinase 367 H CK-MB (CK-2) 1.71 2.80 Troponin I 0.038 0.049 NT-Pro-B Natriuret Pep 586 04/01/17 04/01/17 21:35 21:35 Creatine Kinase 596 H CK-MB (CK-2) 4.42 Troponin I 0.049 NT-Pro-B Natriuret Pep Impressions: Abdomen/Pelvis CT 03/31/17 18:45 IMPRESSION: NO SIGNIFICANT OR ACUTE PROCESS IN THE ABDOMEN OR PELVIS. Chest CT 03/31/17 18:45 IMPRESSION: NO SIGNIFICANT FINDING ON NON-CONTRASTED CHEST CT. Lumbar Spine MRI 04/01/17 00:00 IMPRESSION: 1. Lumbar spondylosis without critical central stenosis. Disc disease looks most pronounced at L5-S1. Here, there is mild mass effect on the right S1 nerve root. Exuberant facet arthropathy as well. Marrow edema regionally has resolved, however. Assessment & Plan - Diagnosis (1) Abdominal pain Qualifiers: Abdominal location: lower abdomen, unspecified Qualified Code(s): R10.30 - Lower abdominal pain, unspecified Is this a current diagnosis for this admission?: Yes Plan: As well as patient's currently in no acute abdominal sign will continues to some IV Antibiotic (2) Nausea & vomiting Qualifiers: Vomiting type: unspecified Is this a current diagnosis for this admission?: Yes Plan: Possible side effect of the Victoza with currently hold the Victoza (3) Elevated lipase Is this a current diagnosis for this admission?: Yes Plan: Lipase is currently back to the normal no sign of any acute pancreatitis will continues to hold the Victoza (4) Severe back pain Is this a current diagnosis for this admission?: Yes Plan: Continues IV pain medications as needed and switch to the p.o. medications once the patient's get improved (5) Chronic kidney disease Qualifiers: Chronic kidney disease stage: stage 3 (moderate) Qualified Code(s): N18.3 - Chronic kidney disease, stage 3 (moderate) Is this a current diagnosis for this admission?: Yes Plan: Continues to IV fluid (6) Hypokalemia Is this a current diagnosis for this admission?: Yes Plan: Replace the potassiums (7) Hypertension Qualifiers: Hypertension type: essential hypertension Qualified Code(s): I10 - Essential (primary) hypertension Is this a current diagnosis for this admission?: Yes Plan: Continues to current medications (8) Type 2 diabetes mellitus Qualifiers: Diabetes mellitus complication status: with unspecified complications Is this a current diagnosis for this admission?: Yes Plan: Continues insulin pump and sliding scale and hold the Victoza (9) Coronary artery disease Qualifiers: Coronary Disease-Associated Artery/Lesion type: unspecified vessel or lesion type Is this a current diagnosis for this admission?: Yes Plan: Currently denied any symptoms (10) Erectile dysfunction Qualifiers: Erectile dysfunction type: unspecified Qualified Code(s): N52.9 - Male erectile dysfunction, unspecified Is this a current diagnosis for this admission?: Yes Plan: Status post penile pump implant and patient is currently in a testosterone and follow with urologist (11) Posttraumatic stress disorder Is this a current diagnosis for this admission?: Yes Plan: Currently on the Lexapro (12) Leukocytosis Qualifiers: Leukocytosis type: unspecified Qualified Code(s): D72.829 - Elevated white blood cell count, unspecified Is this a current diagnosis for this admission?: Yes Plan: Currently getting better (13) Constipation Qualifiers: Constipation type: slow transit constipation Qualified Code(s): K59.01 - Slow transit constipation Is this a current diagnosis for this admission?: Yes Plan: Constipations continues to current medications discussed with the patient's to try the move around - Time Time Spent with patient: 15-24 minutes Medications reviewed and adjusted accordingly: Yes Anticipated discharge: Home Within: Other - Inpatient Certification Medical Necessity: Need Close Monitoring Due to Risk of Patient Decompensation Post Hospital Care: D/C Technical Business Systems Analyst Documentation - Plan Summary Plan Summary: Get the physical therapy evaluations
--- NOTE | 2017-04-02 16:08 | PDOC PROGRESS REPORT ---
Subjective Progress Note for:: 04/02/17 Subjective:: Patient states he does not have any abdominal pain now. Pain has shifted to his right hip. Denies nausea. Positive flatus. Small results with Dulcolax suppository last night. Reason For Visit: UNEXPLAINED ABDOMINAL PAIN,UNEXPLAINED Physical Exam Vital Signs: Temp Pulse Resp BP Pulse Ox 99.1 F 91 20 144/73 H 92 04/02/17 11:46 04/02/17 11:46 04/02/17 11:46 04/02/17 11:46 04/02/17 11:46 Intake & Output 04/01/17 04/02/17 04/03/17 06:59 06:59 06:59 Intake Total 1691 710 Output Total 1150 850 Balance 541 -140 Weight 83.9 kg General appearance: PRESENT: no acute distress GI/Abdominal exam: PRESENT: distended, normal bowel sounds, other - Examination today shows that his abdomen is less distended and softer than exam yesterday. No real tenderness to exam. Neurological exam: PRESENT: alert, awake Results Laboratory Results: 04/02/17 06:27 04/02/17 06:27 04/02/17 04/02/17 04/02/17 05:48 05:48 06:27 WBC Cancelled 11.1 H RBC Cancelled 4.27 L Hgb Cancelled 12.1 L D Hct Cancelled 35.8 L MCV Cancelled 84 MCH Cancelled 28.4 MCHC Cancelled 33.9 RDW Cancelled 15.9 H Plt Count Cancelled 215 Seg Neutrophils % Cancelled 74.3 Lymphocytes % Cancelled 11.2 L Monocytes % Cancelled 13.3 H Eosinophils % Cancelled 0.6 Basophils % Cancelled 0.6 Absolute Neutrophils Cancelled 8.3 H Absolute Lymphocytes Cancelled 1.2 Absolute Monocytes Cancelled 1.5 H Absolute Eosinophils Cancelled 0.1 Absolute Basophils Cancelled 0.1 Sodium Cancelled Potassium Cancelled Chloride Cancelled Carbon Dioxide Cancelled Anion Gap Cancelled BUN Cancelled Creatinine Cancelled Est GFR ( Amer) Cancelled Est GFR (Non-Af Amer) Cancelled Glucose Cancelled Calcium Cancelled Total Bilirubin Cancelled AST Cancelled ALT Cancelled Alkaline Phosphatase Cancelled Total Protein Cancelled Albumin Cancelled Triglycerides Cancelled Cholesterol Cancelled LDL Cholesterol Direct Cancelled VLDL Cholesterol Cancelled HDL Cholesterol Cancelled Lipase Cancelled 04/02/17 06:27 WBC RBC Hgb Hct MCV MCH MCHC RDW Plt Count Seg Neutrophils % Lymphocytes % Monocytes % Eosinophils % Basophils % Absolute Neutrophils Absolute Lymphocytes Absolute Monocytes Absolute Eosinophils Absolute Basophils Sodium 139.9 Potassium 3.1 L Chloride 104 Carbon Dioxide 28 Anion Gap 8 BUN 23 H Creatinine 2.43 H Est GFR ( Amer) 32 L Est GFR (Non-Af Amer) 27 L Glucose 210 H Calcium 8.2 L Total Bilirubin 0.6 AST 25 ALT 25 Alkaline Phosphatase 44 Total Protein 5.4 L Albumin 2.8 L Triglycerides 94 Cholesterol 181.62 LDL Cholesterol Direct 111 H VLDL Cholesterol 19.0 HDL Cholesterol 43 Lipase 94.0 04/01/17 04/01/17 04/01/17 06:07 06:07 06:07 Creatine Kinase 168 Cancelled CK-MB (CK-2) Troponin I NT-Pro-B Natriuret Pep Cancelled 04/01/17 04/01/17 04/01/17 06:07 13:19 13:19 Creatine Kinase 367 H CK-MB (CK-2) 1.71 2.80 Troponin I 0.038 0.049 NT-Pro-B Natriuret Pep 586 04/01/17 04/01/17 21:35 21:35 Creatine Kinase 596 H CK-MB (CK-2) 4.42 Troponin I 0.049 NT-Pro-B Natriuret Pep Impressions: Abdomen/Pelvis CT 03/31/17 18:45 IMPRESSION: NO SIGNIFICANT OR ACUTE PROCESS IN THE ABDOMEN OR PELVIS. Chest CT 03/31/17 18:45 IMPRESSION: NO SIGNIFICANT FINDING ON NON-CONTRASTED CHEST CT. Lumbar Spine MRI 04/01/17 00:00 IMPRESSION: 1. Lumbar spondylosis without critical central stenosis. Disc disease looks most pronounced at L5-S1. Here, there is mild mass effect on the right S1 nerve root. Exuberant facet arthropathy as well. Marrow edema regionally has resolved, however. Assessment & Plan - Diagnosis (1) Abdominal pain Qualifiers: Abdominal location: unspecified location Qualified Code(s): R10.9 - Unspecified abdominal pain Is this a current diagnosis for this admission?: Yes Plan: Appears to be resolving. Lipase normal today. General surgery will sign off. Please call if we can be of further assistance. No apparent indication for surgical intervention. (2) Diverticulitis large intestine Qualifiers: Diverticulitis bleeding: without bleeding Diverticulitis complication: without perforation or abscess Qualified Code(s): K57.32 - Diverticulitis of large intestine without perforation or abscess without bleeding Is this a current diagnosis for this admission?: No Plan: No further workup at this time. CT scan not suggestive of same. Patient may have some obstipation and have some margination of his right white cells related to vomiting that he did. WBC down some today. (3) Elevated lipase Is this a current diagnosis for this admission?: No Plan: Resolved, lipase back to normal today. Unknown if it was side effect from Victoza. Patient and know to discuss it with paper and prints restorer before going back on.
[2017-04-03] MEDS: METRONIDAZOLE 500 MG/NS RTU 100 ML IV SCH ×4 (01:24→18:23)
[2017-04-03] MEDS: HEPARIN SOD (PORCINE) 5,000 UNIT/ML 1 ML SYRINGE SUBCUT SCH ×3 (06:10→21:51)
[2017-04-03] MEDS: LANSOPRAZOLE 15 MG TAB.RAP.DR PO SCH (06:10)
[2017-04-03 06:42] LABS: ABSOLUTE BASOPHILS # (AUTO) 0.1 10^3/uL (0.0-0.2); ABSOLUTE EOSINOPHILS # (AUTO) 0.1 10^3/uL (0.0-0.6); ABSOLUTE LYMPHOCYTES (AUTO) 0.9 10^3/uL (0.5-4.7); ABSOLUTE MONOCYTES (AUTO) 1.5 10^3/uL (0.1-1.4); ABSOLUTE NEUT (AUTO) 9.4 10^3/uL (1.7-8.2); BASOPHILS % (AUTO) 0.4 % (0-2); EOSINOPHILS % (AUTO) 1.2 % (0-6); HEMATOCRIT 36.6 % (37.9-51.0); HEMOGLOBIN 12.4 g/dL (13.5-17.0); LYMPHOCYTES % (AUTO) 7.3 % (13-45); MEAN CORPUSCULAR HEMOGLOBIN 28.3 pg (27.0-33.4); MEAN CORPUSCULAR HGB CONC 33.9 g/dL (32.0-36.0); MEAN CORPUSCULAR VOLUME 83 fl (80-97); MONOCYTES % (AUTO) 12.1 % (3-13); PLATELET COUNT 229 10^3/uL (150-450); RED BLOOD COUNT 4.39 10^6/uL (4.35-5.55); RED CELL DISTRIBUTION WIDTH 15.7 % (11.5-14.0); TOTAL CELLS COUNTED % (AUTO) 100 %
[2017-04-03 06:58] LABS: ANION GAP 13 (5-19); BLOOD UREA NITROGEN 27 mg/dL (7-20); CALCIUM 8.5 mg/dL (8.4-10.2); CARBON DIOXIDE 23 mmol/L (22-30); CHLORIDE 102 mmol/L (98-107); GLUCOSE 251 mg/dL (75-110); LIPASE 154.4 U/L (23-300); POTASSIUM 3.4 mmol/L (3.6-5.0); SODIUM 138.2 mmol/L (137-145)
[2017-04-03] MEDS: INSULIN LISPRO 100 UNIT/ML 3 ML VIAL SUBCUT PRN ×4 (08:10→18:24)
[2017-04-03] MEDS: MORPHINE SULFATE 10 MG/ML INJ IV PRN (08:10)
--- NOTE | 2017-04-03 09:32 | PDOC PROGRESS REPORT ---
Subjective Progress Note for:: 04/03/17 Subjective:: Patient is currently doing same still complaining of abdominal pain and the cramps and a spasm Patient's denied any chest pain denied any shortness of the breath Since still does not have any bowel movement since yesterday Reason For Visit: UNEXPLAINED ABDOMINAL PAIN,UNEXPLAINED Physical Exam Vital Signs: Temp Pulse Resp BP Pulse Ox 98.9 F 85 18 156/73 H 98 04/03/17 08:31 04/03/17 08:31 04/03/17 08:31 04/03/17 08:31 04/03/17 08:31 Intake & Output 04/02/17 04/03/17 04/04/17 06:59 06:59 06:59 Intake Total 1691 3059 Output Total 1150 1350 Balance 541 1709 Weight 83.9 kg 84.9 kg General appearance: PRESENT: no acute distress, well-developed, well-nourished Head exam: PRESENT: atraumatic, normocephalic Eye exam: PRESENT: conjunctiva pink, EOMI, PERRLA. ABSENT: scleral icterus Ear exam: PRESENT: normal external ear exam Mouth exam: PRESENT: moist, tongue midline Neck exam: PRESENT: full ROM. ABSENT: carotid bruit, JVD, lymphadenopathy, thyromegaly Respiratory exam: PRESENT: clear to auscultation zuleima Cardiovascular exam: PRESENT: RRR. ABSENT: diastolic murmur, rubs, systolic murmur Pulses: PRESENT: normal dorsalis pedis pul, +2 pedal pulses bilateral Vascular exam: PRESENT: normal capillary refill GI/Abdominal exam: PRESENT: distended, normal bowel sounds, tenderness. ABSENT : guarding, mass, organolmegaly, rebound Additonal comments: Mild form abdomen with some tenderness in the left flank and the lower quadrant Rectal exam: PRESENT: deferred Extremities exam: ABSENT: pedal edema Neurological exam: PRESENT: alert, awake, oriented to person, oriented to place , oriented to time, oriented to situation, CN II-XII grossly intact. ABSENT: motor sensory deficit Psychiatric exam: PRESENT: appropriate affect, normal mood. ABSENT: homicidal ideation, suicidal ideation Skin exam: PRESENT: dry, intact, warm. ABSENT: cyanosis, rash Results Laboratory Results: 04/03/17 06:22 04/03/17 06:22 04/03/17 04/03/17 06:22 06:22 WBC 12.0 H RBC 4.39 Hgb 12.4 L Hct 36.6 L MCV 83 MCH 28.3 MCHC 33.9 RDW 15.7 H Plt Count 229 Seg Neutrophils % 79.0 H Lymphocytes % 7.3 L Monocytes % 12.1 Eosinophils % 1.2 Basophils % 0.4 Absolute Neutrophils 9.4 H Absolute Lymphocytes 0.9 Absolute Monocytes 1.5 H Absolute Eosinophils 0.1 Absolute Basophils 0.1 Sodium 138.2 Potassium 3.4 L Chloride 102 Carbon Dioxide 23 Anion Gap 13 BUN 27 H Creatinine 2.33 H Est GFR ( Amer) 34 L Est GFR (Non-Af Amer) 28 L Glucose 251 H Calcium 8.5 Lipase 154.4 04/01/17 15:03 Clean Catch Midstream Urine Culture - Final NO GROWTH 2 DAYS 04/01/17 04/01/17 04/01/17 06:07 06:07 06:07 Creatine Kinase 168 Cancelled CK-MB (CK-2) Troponin I NT-Pro-B Natriuret Pep Cancelled 04/01/17 04/01/17 04/01/17 06:07 13:19 13:19 Creatine Kinase 367 H CK-MB (CK-2) 1.71 2.80 Troponin I 0.038 0.049 NT-Pro-B Natriuret Pep 586 04/01/17 04/01/17 21:35 21:35 Creatine Kinase 596 H CK-MB (CK-2) 4.42 Troponin I 0.049 NT-Pro-B Natriuret Pep Impressions: Abdomen/Pelvis CT 03/31/17 18:45 IMPRESSION: NO SIGNIFICANT OR ACUTE PROCESS IN THE ABDOMEN OR PELVIS. Chest CT 03/31/17 18:45 IMPRESSION: NO SIGNIFICANT FINDING ON NON-CONTRASTED CHEST CT. Lumbar Spine MRI 04/01/17 00:00 IMPRESSION: 1. Lumbar spondylosis without critical central stenosis. Disc disease looks most pronounced at L5-S1. Here, there is mild mass effect on the right S1 nerve root. Exuberant facet arthropathy as well. Marrow edema regionally has resolved, however. Assessment & Plan - Diagnosis (1) Abdominal pain Qualifiers: Abdominal location: unspecified location Qualified Code(s): R10.9 - Unspecified abdominal pain Is this a current diagnosis for this admission?: Yes Plan: Patient still complaining of a pain and still have very constipated will do the CT abdomen and pelvis with the p.o. contrast (2) Nausea & vomiting Qualifiers: Vomiting type: unspecified Is this a current diagnosis for this admission?: Yes Plan: Currently all better (3) Elevated lipase Is this a current diagnosis for this admission?: No Plan: Lipase is currently back to the normal no sign of any acute pancreatitis will continues to hold the Victoza (4) Severe back pain Is this a current diagnosis for this admission?: Yes Plan: Continues IV pain medications as needed and switch to the p.o. medications once the patient's get improved (5) Chronic kidney disease Qualifiers: Chronic kidney disease stage: stage 3 (moderate) Qualified Code(s): N18.3 - Chronic kidney disease, stage 3 (moderate) Is this a current diagnosis for this admission?: Yes Plan: Continues to IV fluid (6) Hypokalemia Is this a current diagnosis for this admission?: Yes Plan: Replace the potassiums (7) Hypertension Qualifiers: Hypertension type: essential hypertension Qualified Code(s): I10 - Essential (primary) hypertension Is this a current diagnosis for this admission?: Yes Plan: Continues to current medications (8) Type 2 diabetes mellitus Qualifiers: Diabetes mellitus complication status: with unspecified complications Is this a current diagnosis for this admission?: Yes Plan: Continues insulin pump and sliding scale and hold the Victoza (9) Coronary artery disease Qualifiers: Coronary Disease-Associated Artery/Lesion type: unspecified vessel or lesion type Is this a current diagnosis for this admission?: Yes Plan: Currently denied any symptoms (10) Erectile dysfunction Qualifiers: Erectile dysfunction type: unspecified Qualified Code(s): N52.9 - Male erectile dysfunction, unspecified Is this a current diagnosis for this admission?: Yes Plan: Status post penile pump implant and patient is currently in a testosterone and follow with urologist (11) Posttraumatic stress disorder Is this a current diagnosis for this admission?: Yes Plan: Currently on the Lexapro (12) Leukocytosis Qualifiers: Leukocytosis type: unspecified Qualified Code(s): D72.829 - Elevated white blood cell count, unspecified Is this a current diagnosis for this admission?: Yes Plan: Currently getting better (13) Constipation Qualifiers: Constipation type: slow transit constipation Qualified Code(s): K59.01 - Slow transit constipation Is this a current diagnosis for this admission?: Yes Plan: Constipations continues to current medications discussed with the patient's to try the move around - Time Time Spent with patient: 15-24 minutes Medications reviewed and adjusted accordingly: Yes Anticipated discharge: Other Within: Other - Inpatient Certification Medical Necessity: Need Close Monitoring Due to Risk of Patient Decompensation Post Hospital Care: D/C Elevator Dispatcher Documentation - Plan Summary Plan Summary: We will get the CT abdomen pelvis with p.o. contrast which may helps to rule out the further etiology what initial CT of the abdomen and pelvis was negative but was without contrast but patient still complaining of a pain
--- NOTE | 2017-04-03 11:52 | RADIOLOGY REPORT (SQ) ---
EXAM DESCRIPTION: CT ABD/PELVIS ORAL ONLY COMPLETED DATE/TIME: 04/03/2017 11:24 am REASON FOR STUDY: abd pain COMPARISON: 03/31/2017. TECHNIQUE: CT scan of the abdomen and pelvis performed with oral contrast and no intravenous contras t. Images reviewed with lung, soft tissue, and bone windows. Reconstructed coronal and sagittal MPR i mages reviewed. All images stored on PACS. All CT scanners at this facility use dose modulation, iterative reconstruction, and/or weight based d osing when appropriate to reduce radiation dose to as low as reasonably achievable (ALARA). [facility]: Dose Right [facility]: CareDose [facility]: Dose Right [facility]: Teradose 4D [facility]: Smart Democravise RADIATION DOSE: CT Rad equipment meets quality standard of care and radiation dose reduction techniq ues were employed. CTDIvol: 6.3 mGy. DLP: 358 mGy-cm.mGy. LIMITATIONS: None. FINDINGS: LOWER CHEST: No significant findings. No nodules or infiltrates. NON-CONTRASTED LIVER, SPLEEN, ADRENALS: Evaluation limited by lack of IV contrast. No identified sign ificant masses. PANCREAS: No masses. No peripancreatic inflammatory changes. GALLBLADDER: No identified stones by CT criteria. No inflammatory changes to suggest cholecystitis. RIGHT KIDNEY AND URETER: No solid masses. No significant calcification. No hydronephrosis or hydroure ter. LEFT KIDNEY AND URETER: No solid masses. No significant calcification. No hydronephrosis or hydrouret er. AORTA AND RETROPERITONEUM: No aneurysm. No retroperitoneal masses or adenopathy. BOWEL AND PERITONEAL CAVITY: No obvious masses or inflammatory changes. No free fluid. APPENDIX: Normal. PELVIS, BLADDER, AND ABDOMINAL WALL: No abnormal pelvic masses. No abdominal wall hernias. Bladder un remarkable. Penile prosthesis. BONES: No significant findings. OTHER: No other significant finding. IMPRESSION: NO SIGNIFICANT OR ACUTE ABDOMINAL PROCESS. TECHNICAL DOCUMENTATION: JOB ID: [id number] Quality ID # [id number]: Final reports with documentation of one or more dose reduction techniques (e.g., Au tomated exposure control, adjustment of the mA and/or kV according to patient size, use of iterative reconstruction technique) 2010 [employer]- All Rights Reserved
[2017-04-03] MEDS: CIPROFLOXACIN 400 MG/D5W RTU 400 MG/200 ML RTUPB IV SCH ×2 (12:05→21:52)
[2017-04-03] MEDS: EZETIMIBE 10 MG TABLET PO SCH (12:05)
[2017-04-03] MEDS: POLYETHYLENE GLYCOL 3350 POWDER 17 GM/1 PACKET PO SCH ×3 (12:05→18:24)
[2017-04-03] MEDS: ASPIRIN 325 MG TABLET PO SCH (12:06)
[2017-04-03] MEDS: POTASSIUM CHLORIDE 10 MEQ TABLET.SA PO SCH ×2 (12:06→21:51)
[2017-04-03] MEDS: VALSARTAN 160 MG TABLET PO SCH (12:35)
[2017-04-03] MEDS: ISOSORBIDE MONONITRATE 60 MG TAB.ER.24H PO SCH (12:36)
[2017-04-03] MEDS: AMLODIPINE BESYLATE 10 MG TABLET PO SCH (12:36)
[2017-04-03] MEDS: LUBIPROSTONE 24 MCG CAPSULE PO SCH ×2 (12:36→18:22)
[2017-04-03] MEDS: CARVEDILOL 3.125 MG TABLET PO SCH ×2 (12:36→21:51)
[2017-04-03] MEDS: DICYCLOMINE HCL INJ 20 MG/2 ML AMPULE IM SCH (12:36)
[2017-04-03] MEDS: DOCUSATE SODIUM 100 MG CAPSULE PO SCH ×2 (12:37→18:33)
[2017-04-04] MEDS: METRONIDAZOLE 500 MG/NS RTU 100 ML IV SCH ×2 (00:04→06:09)
[2017-04-04] MEDS: INSULIN LISPRO 100 UNIT/ML 3 ML VIAL SUBCUT PRN ×4 (01:08→18:06)
[2017-04-04] MEDS: HEPARIN SOD (PORCINE) 5,000 UNIT/ML 1 ML SYRINGE SUBCUT SCH ×3 (06:09→21:28)
[2017-04-04] MEDS: LANSOPRAZOLE 15 MG TAB.RAP.DR PO SCH (06:09)
[2017-04-04 06:40] LABS: ABSOLUTE BASOPHILS # (AUTO) 0.1 10^3/uL (0.0-0.2); ABSOLUTE EOSINOPHILS # (AUTO) 0.2 10^3/uL (0.0-0.6); ABSOLUTE LYMPHOCYTES (AUTO) 0.9 10^3/uL (0.5-4.7); ABSOLUTE MONOCYTES (AUTO) 1.3 10^3/uL (0.1-1.4); ABSOLUTE NEUT (AUTO) 7.1 10^3/uL (1.7-8.2); BASOPHILS % (AUTO) 0.6 % (0-2); EOSINOPHILS % (AUTO) 2.1 % (0-6); HEMATOCRIT 35.1 % (37.9-51.0); HEMOGLOBIN 12.4 g/dL (13.5-17.0); LYMPHOCYTES % (AUTO) 9.5 % (13-45); MEAN CORPUSCULAR HEMOGLOBIN 28.7 pg (27.0-33.4); MEAN CORPUSCULAR HGB CONC 35.2 g/dL (32.0-36.0); MEAN CORPUSCULAR VOLUME 82 fl (80-97); MONOCYTES % (AUTO) 13.5 % (3-13); PLATELET COUNT 255 10^3/uL (150-450); RED BLOOD COUNT 4.31 10^6/uL (4.35-5.55); RED CELL DISTRIBUTION WIDTH 15.9 % (11.5-14.0); SEGMENTED NEUTROPHILS % (AUTO) 74.3 % (42-78); TOTAL CELLS COUNTED % (AUTO) 100 %; WHITE BLOOD COUNT 9.6 10^3/uL (4.0-10.5)
[2017-04-04 06:47] LABS: ANION GAP 11 (5-19); BLOOD UREA NITROGEN 29 mg/dL (7-20); CALCIUM 8.7 mg/dL (8.4-10.2); CARBON DIOXIDE 26 mmol/L (22-30); CHLORIDE 103 mmol/L (98-107); GLUCOSE 194 mg/dL (75-110); POTASSIUM 3.2 mmol/L (3.6-5.0); SODIUM 139.6 mmol/L (137-145)
[2017-04-04] MEDS: POLYETHYLENE GLYCOL 3350 POWDER 17 GM/1 PACKET PO SCH ×3 (09:21→18:08)
[2017-04-04] MEDS: CIPROFLOXACIN 400 MG/D5W RTU 400 MG/200 ML RTUPB IV SCH (09:21)
[2017-04-04] MEDS: VALSARTAN 160 MG TABLET PO SCH (09:22)
[2017-04-04] MEDS: CARVEDILOL 3.125 MG TABLET PO SCH ×2 (09:22→21:29)
[2017-04-04] MEDS: AMLODIPINE BESYLATE 10 MG TABLET PO SCH (09:22)
[2017-04-04] MEDS: EZETIMIBE 10 MG TABLET PO SCH (09:23)
[2017-04-04] MEDS: POTASSIUM CHLORIDE 10 MEQ TABLET.SA PO SCH ×2 (09:23→21:29)
[2017-04-04] MEDS: ISOSORBIDE MONONITRATE 60 MG TAB.ER.24H PO SCH (09:23)
[2017-04-04] MEDS: DICYCLOMINE HCL INJ 20 MG/2 ML AMPULE IM SCH (09:23)
[2017-04-04] MEDS: ASPIRIN 325 MG TABLET PO SCH (09:23)
[2017-04-04] MEDS: LUBIPROSTONE 24 MCG CAPSULE PO SCH ×2 (09:23→18:08)
[2017-04-04] MEDS: DOCUSATE SODIUM 100 MG CAPSULE PO SCH ×2 (09:33→18:52)
[2017-04-04] MEDS ORDERED: CARISOPRODOL 350 MG TABLET PO PRN (12:30)
--- NOTE | 2017-04-04 12:42 | PDOC PROGRESS REPORT ---
Subjective Progress Note for:: 04/04/17 Subjective:: Patient is currently doing well Patient's denied any chest pain Denied any shortness of the breath CT abdomen pelvis was done and was all stable Patient also have an edema and a bowel movement and currently doing well Reason For Visit: UNEXPLAINED ABDOMINAL PAIN,UNEXPLAINED Physical Exam Vital Signs: Temp Pulse Resp BP Pulse Ox 98.8 F 83 20 148/69 H 95 04/04/17 08:45 04/04/17 08:45 04/04/17 08:45 04/04/17 08:45 04/04/17 08:45 Intake & Output 04/03/17 04/04/17 04/05/17 06:59 06:59 06:59 Intake Total 3059 2634 Output Total 1350 2985 Balance 1709 -351 Weight 84.9 kg 86.1 kg General appearance: PRESENT: no acute distress, well-developed, well-nourished Head exam: PRESENT: atraumatic, normocephalic Eye exam: PRESENT: conjunctiva pink, EOMI, PERRLA. ABSENT: scleral icterus Ear exam: PRESENT: normal external ear exam Mouth exam: PRESENT: moist, tongue midline Neck exam: PRESENT: full ROM. ABSENT: carotid bruit, JVD, lymphadenopathy, thyromegaly Respiratory exam: PRESENT: clear to auscultation zuleima Cardiovascular exam: PRESENT: RRR. ABSENT: diastolic murmur, rubs, systolic murmur Pulses: PRESENT: normal dorsalis pedis pul, +2 pedal pulses bilateral Vascular exam: PRESENT: normal capillary refill GI/Abdominal exam: PRESENT: normal bowel sounds, soft. ABSENT: distended, guarding, mass, organolmegaly, rebound, tenderness Rectal exam: PRESENT: deferred Extremities exam: ABSENT: pedal edema Neurological exam: PRESENT: alert, awake, oriented to person, oriented to place , oriented to time, oriented to situation, CN II-XII grossly intact. ABSENT: motor sensory deficit Psychiatric exam: PRESENT: appropriate affect, normal mood. ABSENT: homicidal ideation, suicidal ideation Skin exam: PRESENT: dry, intact, warm. ABSENT: cyanosis, rash Results Laboratory Results: 04/04/17 06:20 04/04/17 06:20 04/04/17 04/04/17 06:20 06:20 WBC 9.6 RBC 4.31 L Hgb 12.4 L Hct 35.1 L MCV 82 MCH 28.7 MCHC 35.2 RDW 15.9 H Plt Count 255 Seg Neutrophils % 74.3 Lymphocytes % 9.5 L Monocytes % 13.5 H Eosinophils % 2.1 Basophils % 0.6 Absolute Neutrophils 7.1 Absolute Lymphocytes 0.9 Absolute Monocytes 1.3 Absolute Eosinophils 0.2 Absolute Basophils 0.1 Sodium 139.6 Potassium 3.2 L Chloride 103 Carbon Dioxide 26 Anion Gap 11 BUN 29 H Creatinine 2.30 H Est GFR ( Amer) 34 L Est GFR (Non-Af Amer) 28 L Glucose 194 H Calcium 8.7 04/01/17 15:03 Clean Catch Midstream Urine Culture - Final NO GROWTH 2 DAYS 04/01/17 04/01/17 04/01/17 06:07 06:07 06:07 Creatine Kinase 168 Cancelled CK-MB (CK-2) Troponin I NT-Pro-B Natriuret Pep Cancelled 04/01/17 04/01/17 04/01/17 06:07 13:19 13:19 Creatine Kinase 367 H CK-MB (CK-2) 1.71 2.80 Troponin I 0.038 0.049 NT-Pro-B Natriuret Pep 586 04/01/17 04/01/17 21:35 21:35 Creatine Kinase 596 H CK-MB (CK-2) 4.42 Troponin I 0.049 NT-Pro-B Natriuret Pep Impressions: Chest CT 03/31/17 18:45 IMPRESSION: NO SIGNIFICANT FINDING ON NON-CONTRASTED CHEST CT. Lumbar Spine MRI 04/01/17 00:00 IMPRESSION: 1. Lumbar spondylosis without critical central stenosis. Disc disease looks most pronounced at L5-S1. Here, there is mild mass effect on the right S1 nerve root. Exuberant facet arthropathy as well. Marrow edema regionally has resolved, however. Abdomen/Pelvis CT 04/03/17 00:00 IMPRESSION: NO SIGNIFICANT OR ACUTE ABDOMINAL PROCESS. Assessment & Plan - Diagnosis (1) Abdominal pain Qualifiers: Abdominal location: unspecified location Qualified Code(s): R10.9 - Unspecified abdominal pain Is this a current diagnosis for this admission?: Yes Plan: CT abdomen pelvis is all stable's I think is all coming from the back patient's currently denied any nausea no vomitingNo sign of any diverticulitis (2) Nausea & vomiting Qualifiers: Vomiting type: unspecified Is this a current diagnosis for this admission?: Yes Plan: Currently all resolved (3) Elevated lipase Is this a current diagnosis for this admission?: No Plan: Lipase is currently back to the normal no sign of any acute pancreatitis will continues to hold the Victoza (4) Severe back pain Is this a current diagnosis for this admission?: Yes Plan: Continues IV pain medications as needed and switch to the p.o. medications once the patient's get improved (5) Chronic kidney disease Qualifiers: Chronic kidney disease stage: stage 3 (moderate) Qualified Code(s): N18.3 - Chronic kidney disease, stage 3 (moderate) Is this a current diagnosis for this admission?: Yes Plan: Continues to IV fluid (6) Hypokalemia Is this a current diagnosis for this admission?: Yes Plan: Replace the potassiums (7) Hypertension Qualifiers: Hypertension type: essential hypertension Qualified Code(s): I10 - Essential (primary) hypertension Is this a current diagnosis for this admission?: Yes Plan: Continues to current medications (8) Type 2 diabetes mellitus Qualifiers: Diabetes mellitus complication status: with unspecified complications Is this a current diagnosis for this admission?: Yes Plan: Continues insulin pump and sliding scale and hold the Victoza (9) Coronary artery disease Qualifiers: Coronary Disease-Associated Artery/Lesion type: unspecified vessel or lesion type Is this a current diagnosis for this admission?: Yes Plan: Currently denied any symptoms (10) Erectile dysfunction Qualifiers: Erectile dysfunction type: unspecified Qualified Code(s): N52.9 - Male erectile dysfunction, unspecified Is this a current diagnosis for this admission?: Yes Plan: Status post penile pump implant and patient is currently in a testosterone and follow with urologist (11) Posttraumatic stress disorder Is this a current diagnosis for this admission?: Yes Plan: Currently on the Lexapro (12) Leukocytosis Qualifiers: Leukocytosis type: unspecified Qualified Code(s): D72.829 - Elevated white blood cell count, unspecified Is this a current diagnosis for this admission?: Yes Plan: Currently getting better (13) Constipation Qualifiers: Constipation type: slow transit constipation Qualified Code(s): K59.01 - Slow transit constipation Is this a current diagnosis for this admission?: Yes Plan: All resolved - Time Time Spent with patient: 15-24 minutes Medications reviewed and adjusted accordingly: Yes Anticipated discharge: Other Within: Other - Inpatient Certification Medical Necessity: Need Close Monitoring Due to Risk of Patient Decompensation Post Hospital Care: D/C Product Analyst Documentation - Plan Summary Plan Summary: Will DC the IV antibiotic start on the Cipro p.o. and give her some tramadol and Soma
[2017-04-04] MEDS: TRAMADOL HCL 50 MG TABLET PO PRN ×2 (13:04→21:28)
[2017-04-04] MEDS ORDERED: POTASSIUM CHLORIDE 10 MEQ TABLET.SA PO ONE (17:30)
[2017-04-05] MEDS: INSULIN LISPRO 100 UNIT/ML 3 ML VIAL SUBCUT PRN ×4 (01:58→18:00)
[2017-04-05 05:10] LABS: ABSOLUTE BASOPHILS # (AUTO) 0.1 10^3/uL (0.0-0.2); ABSOLUTE EOSINOPHILS # (AUTO) 0.2 10^3/uL (0.0-0.6); ABSOLUTE LYMPHOCYTES (AUTO) 1.2 10^3/uL (0.5-4.7); ABSOLUTE MONOCYTES (AUTO) 1.3 10^3/uL (0.1-1.4); ABSOLUTE NEUT (AUTO) 6.7 10^3/uL (1.7-8.2); BASOPHILS % (AUTO) 0.5 % (0-2); HEMATOCRIT 34.1 % (37.9-51.0); HEMOGLOBIN 11.8 g/dL (13.5-17.0); LYMPHOCYTES % (AUTO) 12.4 % (13-45); MEAN CORPUSCULAR HEMOGLOBIN 28.7 pg (27.0-33.4); MEAN CORPUSCULAR HGB CONC 34.5 g/dL (32.0-36.0); MEAN CORPUSCULAR VOLUME 83 fl (80-97); MONOCYTES % (AUTO) 13.4 % (3-13); PLATELET COUNT 238 10^3/uL (150-450); RED CELL DISTRIBUTION WIDTH 15.8 % (11.5-14.0); SEGMENTED NEUTROPHILS % (AUTO) 71.7 % (42-78); TOTAL CELLS COUNTED % (AUTO) 100 %; WHITE BLOOD COUNT 9.4 10^3/uL (4.0-10.5)
[2017-04-05 05:30] LABS: ANION GAP 8 (5-19); BLOOD UREA NITROGEN 29 mg/dL (7-20); CALCIUM 9.1 mg/dL (8.4-10.2); CARBON DIOXIDE 26 mmol/L (22-30); CHLORIDE 105 mmol/L (98-107); GLUCOSE 244 mg/dL (75-110); POTASSIUM 3.7 mmol/L (3.6-5.0); SODIUM 139.2 mmol/L (137-145)
[2017-04-05] MEDS: HEPARIN SOD (PORCINE) 5,000 UNIT/ML 1 ML SYRINGE SUBCUT SCH ×2 (06:20→13:23)
[2017-04-05] MEDS: LANSOPRAZOLE 15 MG TAB.RAP.DR PO SCH (06:20)
[2017-04-05] MEDS: TRAMADOL HCL 50 MG TABLET PO PRN (06:30)
[2017-04-05] MEDS: ASPIRIN 325 MG TABLET PO SCH (09:02)
[2017-04-05] MEDS: VALSARTAN 160 MG TABLET PO SCH (09:03)
[2017-04-05] MEDS: CARVEDILOL 3.125 MG TABLET PO SCH (09:04)
[2017-04-05] MEDS: ISOSORBIDE MONONITRATE 60 MG TAB.ER.24H PO SCH (09:04)
[2017-04-05] MEDS: DOCUSATE SODIUM 100 MG CAPSULE PO SCH ×2 (09:04→18:00)
[2017-04-05] MEDS: LUBIPROSTONE 24 MCG CAPSULE PO SCH ×2 (09:05→18:00)
[2017-04-05] MEDS: EZETIMIBE 10 MG TABLET PO SCH (09:05)
[2017-04-05] MEDS: POLYETHYLENE GLYCOL 3350 POWDER 17 GM/1 PACKET PO SCH ×3 (09:06→18:02)
[2017-04-05] MEDS: AMLODIPINE BESYLATE 10 MG TABLET PO SCH (09:06)
[2017-04-05] MEDS: DICYCLOMINE HCL INJ 20 MG/2 ML AMPULE IM SCH (09:07)
[2017-04-05] MEDS: POTASSIUM CHLORIDE 10 MEQ TABLET.SA PO SCH (09:07)
--- NOTE | 2017-04-05 18:23 | PDOC DISCHARGE SUMMARY ---
General - Admit/Disc Date/PCP Admission Date/Primary Care Provider: 04/01/17 03:44 KODY VARGHESE MD Discharge Date: 04/05/17 - Discharge Diagnosis (1) Abdominal pain Is this a current diagnosis for this admission?: Yes Summary: Resolved. Negative CT scan abdomen and pelvic due to elevated lipase level with abdominal pain but no evidence of acute pancreatitis. (2) Elevated lipase Is this a current diagnosis for this admission?: Yes Summary: Resolved. (3) Leukocytosis Is this a current diagnosis for this admission?: Yes Summary: Resolved leukocytosis. No clear cut infectious process. He will remain off antibiotic coverage. (4) Chronic kidney disease Is this a current diagnosis for this admission?: Yes Summary: Continue all preadmission medication management. (5) Coronary artery disease Is this a current diagnosis for this admission?: Yes Summary: Continue all preadmission medication management. (6) Hypertension Is this a current diagnosis for this admission?: Yes Summary: Continue all preadmission medication management. (7) Severe back pain Is this a current diagnosis for this admission?: Yes Summary: Maintain on Tramadol 50 mg p.o q8 hours and Soma 350 mg p.o bid prn for muscle spasm related pain. (8) Type 2 diabetes mellitus Is this a current diagnosis for this admission?: Yes Summary: Continue all preadmission medication management with instruction to discontinue Victoza until follow up with Dr. Vasquez next week. - Additional Information Resuscitation Status: Full Code Prescriptions: Carisoprodol [Soma 350 mg Tablet] 350 mg PO Q12HP PRN #30 tablet PRN Reason: Insulin Aspart [Novolog Insulin (Aspart) 100 unit/mL] See Protocol PUMP CONTINUOUS PRN #1 unit PRN Reason: INSULIN PUMP Tramadol HCl [Ultram 50 mg Tablet] 50 mg PO Q8HP PRN #30 tablet PRN Reason: Home Medications: Amlodipine Besylate/Valsartan [Exforge 10-320 mg Tablet] 1 tab PO DAILY Aspirin [Aspirin 325 mg Tablet] 325 mg PO DAILY 04/01/17 Carvedilol [Coreg 3.125 mg Tablet] 3.125 mg PO Q12 04/01/17 Cholesterolized Hydrophilic Ointment 1 applic TOP BID 04/01/17 Clotrimazole 1 applic TOP QHS 04/01/17 Diclofenac Epolamine [Flector] 1 patch TOP BID 04/01/17 Escitalopram Oxalate [Lexapro] 20 mg PO DAILYP PRN 04/01/17 Ezetimibe [Zetia 10 mg Tablet] 10 mg PO DAILY 04/01/17 Furosemide [Lasix 40 mg Tablet] 40 mg PO DAILY 04/01/17 Isosorbide Mononitrate [Imdur 60 mg Tablet.er] 60 mg PO DAILY 04/01/17 Lubiprostone [Amitiza 24 Mcg Capsule] 24 mcg PO BID 04/01/17 Nitroglycerin [Nitrostat 0.4 mg (1/150 Gr) Tabs 25/Bottle] 0.4 mg SL Q5MP PRN Omeprazole 20 mg PO DAILY 04/01/17 Pitavastatin Calcium [Livalo] 4 mg PO DAILY 04/01/17 Polyethylene Glycol 3350 [Miralax Powder 17 gm/Packet] 1 packet PO BID 04/01/17 Pregabalin [Lyrica 100 mg Capsule] 100 mg PO BIDP PRN 04/01/17 Testosterone Cypionate [Depo-Testosterone] 400 units IM [id number] 04/01/17 Urea [Urea-C40] 1 applic TOP BID 04/01/17 Carisoprodol [Soma 350 mg Tablet] 350 mg PO Q12HP PRN #30 tablet 04/05/17 Insulin Aspart [Novolog Insulin (Aspart) 100 unit/mL] See Protocol PUMP CONTINUOUS PRN #1 unit 04/05/17 Tramadol HCl [Ultram 50 mg Tablet] 50 mg PO Q8HP PRN #30 tablet 04/05/17 History of Present Illness History of Present Illness: CAROL JENSEN is a 71 year old male with a significant history of the type 2 diabetes mellitus currently on insulin pump and see the [facility] and a history of erectile dysfunction currently see a urology and on testosterone injections and history of the coronary artery disease and a history of chronic back pain and history of the discitis in the past and was admitted to the [facility] for that came to the emergency department with a complaining of lower back pain radiating to the bilaterally initially left in the right side and patient was also complaining of her left lower quadrant pain and not feeling well and patient unable to move unable to walk and in the emergency department patient of the CT of the chest and abdomen and pelvis was done was suggestive possible mild diverticulosis and constipations. Patient was giving the IV antibiotic and decided to admit in the IMCU for further evaluations. Since white count was elevated 15 but patient have no fever. But I saw the patient in the floor patient still in a lot of pain initially described from the back and the left lower quadrant. Patient have recently started the Victoza by the supervisor coin machine and patient's noticed some more nausea and vomiting and patient's initial lipase was normal but second lipase was elevated to up to 900 range. Patient's denied any chest pain denied any shortness of the breath. Patient was recently get the testosterone injection last week. Discussed with the patient and the on the bedside and will order the MRI of the LS spine Hospital Course Hospital Course: Patient was taken off Victoza during this hospital stay. He did respond to IV hydration and antibiotic coverage for possible infectious process due to elevated WBC. Antibiotic coverage has been discontinue over last 24 hours without any fever or chills. Patient denied any abdominal pain, had satisfactory bowel movement, and tolerated oral feeding. His blood glucose control remain a challenge. he will be discharge home as per his and spouse request today. He will follow up with Dr Vasquez in the next 1 week for further evaluation and management of his diabetes mellitus type 2. Patient will contact his supervisor coin machine regarding discontinuation of Victoza. He will remain on AC sliding scale insulin coverage. I had extensive discussion with him and spouse at bedside regarding his insulin management and need for frequent home blood glucose monitoring. Physical Exam Vital Signs: Temp Pulse Resp BP Pulse Ox 97.7 F 79 18 130/65 H 91 L 04/05/17 11:17 04/05/17 14:00 04/05/17 11:17 04/05/17 11:17 04/05/17 11:17 Intake & Output 04/04/17 04/05/17 04/06/17 06:59 06:59 06:59 Intake Total 2634 2090 444 Output Total 2985 1255 300 Balance -351 835 144 Weight 86.1 kg 86.2 kg General appearance: PRESENT: no acute distress, well-developed, well-nourished Head exam: PRESENT: atraumatic, normocephalic Eye exam: PRESENT: conjunctiva pink, EOMI, PERRLA. ABSENT: scleral icterus Mouth exam: PRESENT: moist Respiratory exam: PRESENT: clear to auscultation zuleima Cardiovascular exam: PRESENT: RRR. ABSENT: diastolic murmur, rubs, systolic murmur GI/Abdominal exam: PRESENT: normal bowel sounds, soft. ABSENT: distended, guarding, mass, organolmegaly, rebound, tenderness Extremities exam: ABSENT: pedal edema Musculoskeletal exam: PRESENT: normal inspection Neurological exam: PRESENT: alert, awake, oriented to person, oriented to place , oriented to time, oriented to situation, CN II-XII grossly intact. ABSENT: motor sensory deficit Psychiatric exam: PRESENT: appropriate affect, normal mood. ABSENT: homicidal ideation, suicidal ideation Skin exam: PRESENT: dry, intact, warm. ABSENT: cyanosis, rash Results Laboratory Results: 04/05/17 04:36 04/05/17 04:36 04/05/17 04/05/17 04:36 04:36 WBC 9.4 RBC 4.10 L Hgb 11.8 L Hct 34.1 L MCV 83 MCH 28.7 MCHC 34.5 RDW 15.8 H Plt Count 238 Seg Neutrophils % 71.7 Lymphocytes % 12.4 L Monocytes % 13.4 H Eosinophils % 2.0 Basophils % 0.5 Absolute Neutrophils 6.7 Absolute Lymphocytes 1.2 Absolute Monocytes 1.3 Absolute Eosinophils 0.2 Absolute Basophils 0.1 Sodium 139.2 Potassium 3.7 Chloride 105 Carbon Dioxide 26 Anion Gap 8 BUN 29 H Creatinine 2.34 H Est GFR ( Amer) 34 L Est GFR (Non-Af Amer) 28 L Glucose 244 H Calcium 9.1 04/01/17 04/01/17 04/01/17 06:07 06:07 06:07 Creatine Kinase 168 Cancelled CK-MB (CK-2) Troponin I NT-Pro-B Natriuret Pep Cancelled 04/01/17 04/01/17 04/01/17 06:07 13:19 13:19 Creatine Kinase 367 H CK-MB (CK-2) 1.71 2.80 Troponin I 0.038 0.049 NT-Pro-B Natriuret Pep 586 04/01/17 04/01/17 21:35 21:35 Creatine Kinase 596 H CK-MB (CK-2) 4.42 Troponin I 0.049 NT-Pro-B Natriuret Pep Impressions: Chest CT 03/31/17 18:45 IMPRESSION: NO SIGNIFICANT FINDING ON NON-CONTRASTED CHEST CT. Lumbar Spine MRI 04/01/17 00:00 IMPRESSION: 1. Lumbar spondylosis without critical central stenosis. Disc disease looks most pronounced at L5-S1. Here, there is mild mass effect on the right S1 nerve root. Exuberant facet arthropathy as well. Marrow edema regionally has resolved, however. Abdomen/Pelvis CT 04/03/17 00:00 IMPRESSION: NO SIGNIFICANT OR ACUTE ABDOMINAL PROCESS. Qualifiers PATEINT BEING DISCHARGED WITH ANY OF THE FOLLOWING DIAGNOSIS?: No Plan Discharge Plan: Discharge home today. Follow up with Dr Vasquez as instructed upon discharge. Time Spent: Less than 30 Minutes
[2017-04-05 18:34] VITALS: BP 156/77
== END 2017-04-05 18:53 | disposition home or self-care (01) | DRG 392 ==
LOC: ER 17:59 → EH 04-01 03:44 → ICU 04-01 08:23 → 3W 04-01 23:35
PROVIDERS: ADMIT Family Medicine; ATTEND Family Medicine
DX: R10.32 Left lower quadrant pain (principal); I12.9 Hypertensive chronic kidney disease with stage 1 through stage 4 chronic kidney disease, or unspecified chronic kidney disease; R74.8 Abnormal levels of other serum enzymes; E87.6 Hypokalemia; E11.22 Type 2 diabetes mellitus with diabetic chronic kidney disease; M62.830 Muscle spasm of back; M54.9 Dorsalgia, unspecified; E11.40 Type 2 diabetes mellitus with diabetic neuropathy, unspecified; N18.9 Chronic kidney disease, unspecified; Z96.41 Presence of insulin pump (external) (internal); N52.9 Male erectile dysfunction, unspecified; I25.10 Atherosclerotic heart disease of native coronary artery without angina pectoris; G89.29 Other chronic pain; D72.829 Elevated white blood cell count, unspecified; M54.5 Low back pain; M46.47 Discitis, unspecified, lumbosacral region; Z79.84 Long term (current) use of oral hypoglycemic drugs; Z79.890 Hormone replacement therapy; F43.10 Post-traumatic stress disorder, unspecified; Z79.82 Long term (current) use of aspirin; K59.00 Constipation, unspecified; Z86.73 Personal history of transient ischemic attack (TIA), and cerebral infarction without residual deficits; K21.9 Gastro-esophageal reflux disease without esophagitis; M19.90 Unspecified osteoarthritis, unspecified site; Z96.651 Presence of right artificial knee joint
CPT/HCPCS: 36415; 71250; 72148; 74176; 80048; 80053; 80061; 80307; 81001; 82140; 82150; 82550; 82553; 82803; 82962; 83036; 83690; 83735; 83880; 84100; 84439; 84443; 84484; 85025; 85610; 85652; 85730; 86140; 87040; 87086; 96374; 96375; 96376; 99285; G8978-GP; G8979-GP; J0500; J0744; J1644; J1815; J2270; J2405; J2550; J3490; J7030

== ENCOUNTER → 2017-05-29 | Outpatient (CLI) | payer MEDICARE, BC, OTHER ==
[2017-05-29 11:42] LABS: ABSOLUTE EOSINOPHILS # (AUTO) 0.1 10^3/uL (0.0-0.6); ABSOLUTE LYMPHOCYTES (AUTO) 1.2 10^3/uL (0.5-4.7); ABSOLUTE MONOCYTES (AUTO) 0.7 10^3/uL (0.1-1.4); ABSOLUTE NEUT (AUTO) 5.3 10^3/uL (1.7-8.2); BASOPHILS % (AUTO) 0.4 % (0-2); EOSINOPHILS % (AUTO) 1.8 % (0-6); HEMATOCRIT 36.4 % (37.9-51.0); HEMOGLOBIN 12.9 g/dL (13.5-17.0); LYMPHOCYTES % (AUTO) 16.1 % (13-45); MEAN CORPUSCULAR HEMOGLOBIN 27.9 pg (27.0-33.4); MEAN CORPUSCULAR HGB CONC 35.5 g/dL (32.0-36.0); MEAN CORPUSCULAR VOLUME 79 fl (80-97); MONOCYTES % (AUTO) 9.4 % (3-13); PLATELET COUNT 256 10^3/uL (150-450); RED BLOOD COUNT 4.63 10^6/uL (4.35-5.55); RED CELL DISTRIBUTION WIDTH 14.8 % (11.5-14.0); SEGMENTED NEUTROPHILS % (AUTO) 72.3 % (42-78); TOTAL CELLS COUNTED % (AUTO) 100 %; WHITE BLOOD COUNT 7.4 10^3/uL (4.0-10.5)
[2017-05-29 11:59] LABS: ALANINE AMINOTRANSFERASE 37 U/L (21-72); ALBUMIN 3.8 g/dL (3.5-5.0); ALKALINE PHOSPHATASE 60 U/L (38-126); ANION GAP 12 (5-19); ASPARTATE AMINO TRANSFERASE 27 U/L (17-59); BILIRUBIN,DIRECT 0.3 mg/dL (0.0-0.4); BILIRUBIN,TOTAL 0.4 mg/dL (0.2-1.3); BLOOD UREA NITROGEN 21 mg/dL (7-20); CALCIUM 9.2 mg/dL (8.4-10.2); CARBON DIOXIDE 29 mmol/L (22-30); CHLORIDE 105 mmol/L (98-107); CHOLESTEROL 183.25 mg/dL (0-200); GLUCOSE 107 mg/dL (75-110); POTASSIUM 3.3 mmol/L (3.6-5.0); SODIUM 145.8 mmol/L (137-145); TOTAL PROTEIN 6.5 g/dL (6.3-8.2); TRIGLYCERIDES 107 mg/dL (<150)
[2017-05-29 12:09] LABS: DIRECT LDL 120 mg/dL (<100)
== END ==
LOC: OD 10:33
PROVIDERS: ATTEND Urology
DX: N40.1 Benign prostatic hyperplasia with lower urinary tract symptoms (principal); N41.1 Chronic prostatitis; E78.5 Hyperlipidemia, unspecified; E13.9 Other specified diabetes mellitus without complications
CPT/HCPCS: 36415; 80053; 80061; 83036; 84153; 84403; 85025

== ENCOUNTER → 2019-08-25 | Outpatient (CLI) | payer MEDICARE, BC, OTHER | LOC: OD 11:25 | PROVIDERS: ATTEND Physician Assistant Medical | DX: E87.5 Hyperkalemia (principal) | CPT/HCPCS: 36415; 84132 ==

== ENCOUNTER 2019-11-23 11:59 | Emergency (ER) | payer MEDICARE, BC, OTHER ==
[2019-11-23 12:22] LABS: ABSOLUTE EOSINOPHILS # (AUTO) 0.1 10^3/uL (0.0-0.6); ABSOLUTE LYMPHOCYTES (AUTO) 0.7 10^3/uL (0.5-4.7); ABSOLUTE MONOCYTES (AUTO) 0.7 10^3/uL (0.1-1.4); ABSOLUTE NEUT (AUTO) 6.5 10^3/uL (1.7-8.2); BASOPHILS % (AUTO) 0.3 % (0-2); EOSINOPHILS % (AUTO) 1.4 % (0-6); HEMATOCRIT 40.7 % (37.9-51.0); HEMOGLOBIN 13.9 g/dL (13.5-17.0); LYMPHOCYTES % (AUTO) 8.7 % (13-45); MEAN CORPUSCULAR HEMOGLOBIN 30.4 pg (27.0-33.4); MEAN CORPUSCULAR HGB CONC 34.2 g/dL (32.0-36.0); MEAN CORPUSCULAR VOLUME 89 fl (80-97); MONOCYTES % (AUTO) 8.9 % (3-13); PLATELET COUNT 171 10^3/uL (150-450); RED BLOOD COUNT 4.58 10^6/uL (4.35-5.55); RED CELL DISTRIBUTION WIDTH 13.9 % (11.5-14.0); SEGMENTED NEUTROPHILS % (AUTO) 80.7 % (42-78); TOTAL CELLS COUNTED % (AUTO) 100 %
[2019-11-23 12:46] LABS: ALBUMIN 3.4 g/dL (3.5-5.0); ALKALINE PHOSPHATASE 89 U/L (38-126); ANION GAP 14 (5-19); ASPARTATE AMINO TRANSFERASE 30 U/L (17-59); BILIRUBIN,TOTAL 0.5 mg/dL (0.2-1.3); BLOOD UREA NITROGEN 42 mg/dL (7-20); CALCIUM 8.7 mg/dL (8.4-10.2); CARBON DIOXIDE 23 mmol/L (22-30); CHLORIDE 101 mmol/L (98-107); POTASSIUM 3.5 mmol/L (3.6-5.0)
[2019-11-23 12:53] LABS: ALCOHOL < 10 mg/dL (NONE DETECTED)
[2019-11-23 12:54] LABS: GLUCOSE 634 mg/dL (75-110)
[2019-11-23] MEDS ORDERED: INSULIN REG, HUMAN 100 UNIT/ML 3 ML VIAL (PYX) IV ONE (12:59)
[2019-11-23] MEDS ORDERED: POTASSIUM CHLORIDE 10 MEQ TABLET.ER PO ONE (13:00)
--- NOTE | 2019-11-23 13:00 | ER Document Report ---
Entered by ROBERTH MILTON SCRIBE 11/23/19 1253 Acting as scribe for:ROSSY GUEVARA MD ED General - General Chief Complaint: Probable Seizure Stated Complaint: POSSIBLE SEIZURE Time Seen by Provider: 11/23/19 12:21 Primary Care Provider: JILL REDDY PA-C [ALLIED HEALTH PROFESSIONAL] - Follow up as needed Mode of Arrival: Ambulatory Information source: Patient Notes: This 74 year old male patient presents to the emergency department today with complaints of a possible seizure prior to arrival. He reports that he was at a rental house of his talking to a contractor who was doing repairs on the house, and the last thing he remembers was sitting in his parked car. at bedside who was not on scene mentions that the tenant saw the patient "shaking" in his car and called 911. Patient reports that he "just feels blase" now. TRAVEL OUTSIDE OF THE [place] IN LAST 30 DAYS: No - Related Data Allergies/Adverse Reactions: Penicillins Allergy (Verified 03/31/17 18:02) Yyqwcrx-Kme-Tua Reductase Inhibitor Allergy (Verified 03/31/17 18:02) Past Medical History - General Information source: Patient - Social History Smoking Status: Never Smoker Cigarette use (# per day): No Chew tobacco use (# tins/day): No Drug Abuse: None Occupation: retired Lives with: Family Family History: Reviewed & Not Pertinent Patient has homicidal ideation: No - Past Medical History Cardiac Medical History: Reports: Hx Coronary Artery Disease, Hx Hypercholester olemia, Hx Hypertension Neurological Medical History: Reports: Hx Cerebrovascular Accident - RIGHT SIDE WEAKNESS 1998 Endocrine Medical History: Reports: Hx Diabetes Mellitus Type 2 GI Medical History: Reports: Hx Gastroesophageal Reflux Disease Musculoskeletal Medical History: Reports Hx Arthritis Psychiatric Medical History: Reports: Hx Post Traumatic Stress Disorder Past Surgical History: Reports: Hx Cardiac Catheterization - x3, Hx Orthopedic Surgery - R Knee - Immunizations Hx Diphtheria, Pertussis, Tetanus Vaccination: Yes Hx Pneumococcal Vaccination: 04/07/12 Review of Systems - Review of Systems Constitutional: See HPI, Malaise EENT: No symptoms reported Cardiovascular: No symptoms reported Respiratory: No symptoms reported Gastrointestinal: No symptoms reported Genitourinary: No symptoms reported Male Genitourinary: No symptoms reported Musculoskeletal: No symptoms reported Skin: No symptoms reported Hematologic/Lymphatic: No symptoms reported Neurological/Psychological: See HPI, Seizure - ? -: Yes All other systems reviewed and negative Physical Exam - Vital signs Vitals: Temp Resp BP Pulse Ox 98.0 F 20 190/93 H 96 11/23/19 12:05 11/23/19 12:05 11/23/19 12:05 11/23/19 12:05 - Notes Notes: Physical Exam: General: Alert, appears to be worn out. HEENT: Normocephalic. Atraumatic. PERRL. Extraocular movements intact. Oropharynx clear. Neck: Supple. Non-tender. Respiratory: No respiratory distress. Clear and equal breath sounds bilaterally. Cardiovascular: Not tachycardic, there is an occasional irregular beat. Abdominal: Normal Inspection. Non-tender. No distension. Normal Bowel Sounds. Back: No gross abnormalities. Extremities: Moves all four extremities. Upper extremities: Normal inspection. Normal ROM. Lower extremities: Normal inspection. No edema. Normal ROM. Neurological: Normal cognition. AAOx4. Normal speech. Psychological: Normal affect. Normal Mood. Skin: Warm. Dry. Normal color. Course - Re-evaluation Re-evalutation: 11/23/19 14:34 Patient's blood sugar was 634, his A1c was 9.9, he tried to explain the elevated blood sugar is being from a steroid injection he got recently. 11/23/19 14:34 Patient had initially denied being incontinent of urine, however later admitted to the nurse that he had urinated on himself. 11/23/19 14:36 The patient's BUN and creatinine are approximately double what they were just over 2 years ago, however there is no lab work for comparison since May 2017. 11/23/19 15:13 I went back in to check on the patient after speaking with Dr. Vasquez and did confirm that he was not wearing his insulin pump today, and did not take his med ications today. 11/23/19 16:56 The nurse called me into the room to see the patient having a shaking episode. He was laying in the stretcher shaking his left upper extremity. His heart rate showed a sinus tach of 120 on the monitor. He was crying. He states he could not say why he was shaking or why he was crying. I did order Ativan 1/2 mg IV. 11/23/19 18:58 The patient later went to sleep, his heart rate went to 72 and his blood pressure came back down. 11/23/19 19:01 The patient was evaluated during the global COVID-19 pandemic and that diagnosis was suspected/considered upon their initial presentation. Their evaluation, treatment and testing was consistent with current guidelines for patients who present with complaints or symptoms that may be related to COVID-19. - Vital Signs Vital signs: Temp Pulse Resp BP Pulse Ox 98.5 F 72 17 139/65 H 97 11/23/19 13:40 11/23/19 12:35 11/23/19 18:31 11/23/19 18:31 11/23/19 18:31 - Laboratory Result Diagrams: 11/23/19 12:04 11/23/19 12:04 Laboratory results interpreted by me: 11/23/19 11/23/19 11/23/19 12:04 12:04 12:04 Lymph % (Auto) 8.7 L Seg Neutrophils % 80.7 H Potassium 3.5 L BUN 42 H Creatinine 3.94 H Est GFR ( Amer) 18 L Est GFR (MDRD) Non-Af 15 L Glucose 634 H* POC Glucose Hemoglobin A1c % 9.9 H Creatine Kinase Total Protein 6.0 L Albumin 3.4 L Urine Protein Urine Glucose (UA) Urine Blood 11/23/19 11/23/19 11/23/19 12:04 13:00 14:55 Lymph % (Auto) Seg Neutrophils % Potassium BUN Creatinine Est GFR ( Amer) Est GFR (MDRD) Non-Af Glucose POC Glucose 482 H* Hemoglobin A1c % Creatine Kinase 243 H Total Protein Albumin Urine Protein >=500 H Urine Glucose (UA) >=500 H Urine Blood MODERATE H 11/23/19 16:12 Lymph % (Auto) Seg Neutrophils % Potassium BUN Creatinine Est GFR ( Amer) Est GFR (MDRD) Non-Af Glucose POC Glucose 506 H* Hemoglobin A1c % Creatine Kinase Total Protein Albumin Urine Protein Urine Glucose (UA) Urine Blood - Diagnostic Test Radiology reviewed: Image reviewed, Reports reviewed - CT scan unremarkable. MRI of the brain does not show acute findings, only chronic microvascular ischemic changes. - EKG Interpretation by Me EKG shows normal: Sinus rhythm, [place], Intervals, QRS Complexes, ST-T Waves Rate: Normal - 95 Rhythm: NSR Voltage: Consistent with LVH When compared to previous EKG there are: No significant change - Consults Dr. Vasquez Time consulted: 15:05 Consulted provider: follow-up in office - Request getting MRI of the head, and loading the patient with Keppra to follow-up in the office. He also states patient is supposed to have an insulin pump on. Discharge - Discharge Clinical Impression: Seizure, Encounter for laboratory testing for COVID-19 virus Hyperglycemia due to type 2 diabetes mellitus Qualifiers: Diabetes mellitus fpc insulin use: unspecified emt intermediate insulin use status Qualified Code(s): E11.65 - Type 2 diabetes mellitus with hyperglycemia Condition: Stable Disposition: HOME, SELF-CARE Instructions: COVID-19 Guidance for Persons Under Investigation Additional Instructions: Seizure: You MAY have had a seizure. Seizure disorders (epilepsy) of one sort or another affect about one out of 50 people. The seizure occurs because of abnormal electrical activity in the brain. Seizures may be due to drugs and alcohol, strokes, brain injury, or infecti on. In the most common form of epilepsy, no cause can be found. You will require further evaluation to determine the cause of your seizure, and to determine whether anti-seizure medication is required. This follow-up testing is important, so please call us if you encounter problems with scheduling of tests or appointments. YOU SHOULD NOT DRIVE until released to do so by your physician. The law requires that seizures be reported to the roll off driver's license bureau--a seizure while driving could be catastrophic. Call the doctor if seizures recur, or if you develop new symptoms such as fever, severe headache, stiff neck, confusion or increasing sleepiness, weakness or numbness, or visual problems. You may have had a seizure today. The information we received was that you were seen to be shaking in the car, and you did urinate on himself by history. Your blood sugars were quite high today, but you report that you did not put your insulin pump on today. Any new unexplained symptoms in this area of COVID-19 infections, warrants doing COVID testing and assuming you are positive until you get a negative test result back. Dr. Vasquez wants to see you in the office tomorrow morning for recheck. Be sure you wear a mask when you go to the office to be seen. Please put your insulin pump back on when you get home and check your blood sugars frequently. Be sure you take all of your regular medications the way they are prescribed. RETURN TO THE EMERGENCY ROOM IF ANY NEW OR WORSENING SYMPTOMS. Referrals: NICHOL VASQUEZ MD [Primary Care Provider] - Follow up tomorrow () I personally performed the services described in the documentation, reviewed and edited the documentation which was dictated to the scribe in my presence, and it accurately records my words and actions.
[2019-11-23] MEDS ORDERED: METOPROLOL TARTRATE PF/INJ 5 MG/5 ML SDV IV ONE (13:16)
[2019-11-23 13:29] LABS: APPEARANCE,URINE CLEAR; BILIRUBIN,URINE NEGATIVE (NEGATIVE); COLOR,URINE STRAW; GLUCOSE, URINE >=500 mg/dL (NEGATIVE); KETONES,URINE NEGATIVE (NEGATIVE); LEUKOCYTE ESTERASE,URINE NEGATIVE (NEGATIVE); NITRITE,URINE NEGATIVE (NEGATIVE); PROTEIN,URINE >=500 mg/dL (NEGATIVE); URINE SPECIFIC GRAVITY 1.014; UROBILINOGEN,URINE NEGATIVE mg/dL (<2.0)
[2019-11-23 13:43] LABS: URINE AMPHETAMINES SCREEN NEGATIVE; URINE BARBITURATES SCREEN NEGATIVE; URINE BENZODIAZEPINES SCREEN NEGATIVE; URINE COCAINE SCREEN NEGATIVE; URINE MARIJUANA (THC) SCREEN NEGATIVE; URINE METHADONE SCREEN NEGATIVE; URINE PHENCYCLIDINE SCREEN NEGATIVE
--- NOTE | 2019-11-23 14:17 | RADIOLOGY REPORT (SQ) ---
EXAM DESCRIPTION: CT HEAD WITHOUT IMAGES COMPLETED DATE/TIME: 11/23/2019 2:06 pm REASON FOR STUDY: Seizure COMPARISON: CT of the head without contrast from 09/20/2015. TECHNIQUE: Axial images acquired through the brain without intravenous contrast. Images reviewed wi th bone, brain and subdural windows. Additional sagittal and coronal reconstructions were generated. Images stored on PACS. All CT scanners at this facility use dose modulation, iterative reconstruction, and/or weight based d osing when appropriate to reduce radiation dose to as low as reasonably achievable (ALARA). [facility]: Dose Right [facility]: CareDose [facility]: Dose Right [facility]: Teradose 4D [facility]: Thoughtly RADIATION DOSE: CT Rad equipment meets quality standard of care and radiation dose reduction techniq ues were employed. CTDIvol: 53.2 mGy. DLP: 1124 mGy-cm. LIMITATIONS: None. FINDINGS: There is diffuse age-appropriate cerebral and cerebellar volume loss. The caliber of the ventricles is concordant with the degree of sulcation. The confluent areas of low-attenuation throug hout the supratentorial periventricular and subcortical white matter are unchanged and likely represe nt the sequela of chronic microvascular ischemia. There is no acute intracranial hemorrhage, vascula r territorial infarct, extra-axial fluid collection, mass effect or midline shift. The tello-white ma tter differentiation is preserved. There is no effacement of the cerebral sulci or basal subarachnoi d cisterns. The globes are aphakic. The orbits are intact. There is no fracture of the calvarium. IMPRESSION: NORMAL BRAIN CT WITHOUT CONTRAST. EVIDENCE OF ACUTE STROKE: NO. COMMENT: Quality ID # [id number]: Final reports with documentation of one or more dose reduction techniques (e.g., Automated exposure control, adjustment of the mA and/or kV according to patient size, use of iterative reconstruction technique) TECHNICAL DOCUMENTATION: JOB ID: [id number] 2010 [employer]- All Rights Reserved Reading location - IP/workstation name: [email or web address]
[2019-11-23] MEDS ORDERED: NORMAL SALINE 1000 ML 1,000 ML IV ONE (15:09)
[2019-11-23] MEDS ORDERED: LEVETIRACETAM 1000 MG/NACL-ISO 1,000 MG/100 ML RTUPB IV ONE (15:10)
[2019-11-23] MEDS ORDERED: HYDRALAZINE HCL INJ/PF 20 MG/1 ML SDV IV ONE (15:13)
[2019-11-23] MEDS ORDERED: LORAZEPAM INJ 2 MG/1 ML VIAL IV ONE (16:53)
--- NOTE | 2019-11-23 18:47 | RADIOLOGY REPORT (SQ) ---
EXAM DESCRIPTION: MRI HEAD WITHOUT IMAGES COMPLETED DATE/TIME: 11/23/2019 6:09 pm REASON FOR STUDY: New onset seizures COMPARISON: 09/19/2017 TECHNIQUE: Multiplanar imaging includes non-contrasted T1, T2, FLAIR, and diffusion with ADC map seq uences. Images stored on PACS. LIMITATIONS: None. FINDINGS: ANATOMY: No anomalies. Normal vascular flow voids. Pituitary fossa normal. CSF SPACES: Normal in size and contour. No hemorrhage. CEREBRUM: Sulci and gyri normal in size and contour. Scattered small areas of increased white matter signal on FLAIR imaging. No evidence of hemorrhage, mass, or extraaxial fluid collection. POSTERIOR FOSSA: No signal alteration. No hemorrhage. No edema, masses or mass effect. Internal pratik tory canals, cerebello-pontine angles, mastoids normal. DIFFUSION IMAGING: Negative for acute or sub-acute infarction. ORBITS: No masses. Globes normal. PARANASAL SINUSES: No fluid levels. Mucosa normal. OTHER: No other significant finding. IMPRESSION: Minimal chronic microvascular ischemia with no acute intracranial imaging findings. EVIDENCE OF ACUTE STROKE: NO. TECHNICAL DOCUMENTATION: JOB ID: [id number] 2010 [employer]- All Rights Reserved Reading location - IP/workstation name: [email or web address]
--- NOTE | 2019-11-23 19:33 | EKG REPORT ---
SEVERITY:- ABNORMAL ECG - SINUS RHYTHM PROBABLE LEFT ATRIAL ABNORMALITY LEFT VENTRICULAR HYPERTROPHY INFERIOR INFARCT, AGE INDETERMINATE BORDERLINE PROLONGED QT INTERVAL : Confirmed by: Magdalena Green 23-Nov-2019 19:32:39
[2019-11-23 19:56] VITALS: BP 133/62
== END 2019-11-23 19:59 | disposition home or self-care (01) ==
LOC: ER 11:59
DX: R56.9 Unspecified convulsions (principal); E11.65 Type 2 diabetes mellitus with hyperglycemia; R32 Unspecified urinary incontinence; Z88.0 Allergy status to penicillin; Z88.8 Allergy status to other drugs, medicaments and biological substances; I25.10 Atherosclerotic heart disease of native coronary artery without angina pectoris; I10 Essential (primary) hypertension; Z79.4 Long term (current) use of insulin; Z96.41 Presence of insulin pump (external) (internal); Z20.828 Contact with and (suspected) exposure to other viral communicable diseases
CPT/HCPCS: 93005; 99285; 96361; 96375; 96365; 36415; 82962; 80307 ×2; 82550; 83735; 85025; 80053; 81001; 84484; 83036; 70551; 70450; 93010; U0003; J0360; J3490; J2060; A9270 ×2; J7030; J1953; C9803; 87635; J1815

== ENCOUNTER → 2019-12-07 | Outpatient (CLI) | payer MEDICARE, BC, OTHER ==
[2019-12-07 11:56] LABS: ABSOLUTE EOSINOPHILS # (AUTO) 0.1 10^3/uL (0.0-0.6); ABSOLUTE LYMPHOCYTES (AUTO) 1.1 10^3/uL (0.5-4.7); ABSOLUTE MONOCYTES (AUTO) 0.8 10^3/uL (0.1-1.4); ABSOLUTE NEUT (AUTO) 5.2 10^3/uL (1.7-8.2); BASOPHILS % (AUTO) 0.4 % (0-2); EOSINOPHILS % (AUTO) 1.8 % (0-6); HEMATOCRIT 36.3 % (37.9-51.0); HEMOGLOBIN 12.4 g/dL (13.5-17.0); LYMPHOCYTES % (AUTO) 14.7 % (13-45); MEAN CORPUSCULAR HEMOGLOBIN 30.4 pg (27.0-33.4); MEAN CORPUSCULAR HGB CONC 34.3 g/dL (32.0-36.0); MEAN CORPUSCULAR VOLUME 89 fl (80-97); MONOCYTES % (AUTO) 10.8 % (3-13); PLATELET COUNT 196 10^3/uL (150-450); RED CELL DISTRIBUTION WIDTH 13.9 % (11.5-14.0); SEGMENTED NEUTROPHILS % (AUTO) 72.3 % (42-78); TOTAL CELLS COUNTED % (AUTO) 100 %; WHITE BLOOD COUNT 7.1 10^3/uL (4.0-10.5)
[2019-12-07 12:15] LABS: ALBUMIN 3.2 g/dL (3.5-5.0); ALKALINE PHOSPHATASE 83 U/L (38-126); ANION GAP 8 (5-19); ASPARTATE AMINO TRANSFERASE 64 U/L (17-59); BILIRUBIN,DIRECT 0.4 mg/dL (0.0-0.4); BILIRUBIN,TOTAL 0.7 mg/dL (0.2-1.3); BLOOD UREA NITROGEN 58 mg/dL (7-20); CALCIUM 8.8 mg/dL (8.4-10.2); CARBON DIOXIDE 31 mmol/L (22-30); CHLORIDE 105 mmol/L (98-107); PHOSPHORUS 4.4 mg/dL (2.5-4.5); POTASSIUM 3.3 mmol/L (3.6-5.0); TOTAL PROTEIN 5.9 g/dL (6.3-8.2)
[2019-12-07 12:18] LABS: GLUCOSE 45 mg/dL (75-110)
[2019-12-07 14:13] LABS: APPEARANCE,URINE CLEAR; BILIRUBIN,URINE NEGATIVE (NEGATIVE); COLOR,URINE YELLOW; GLUCOSE, URINE NEGATIVE (NEGATIVE); KETONES,URINE NEGATIVE (NEGATIVE); LEUKOCYTE ESTERASE,URINE MODERATE (NEGATIVE); NITRITE,URINE NEGATIVE (NEGATIVE); PROTEIN,URINE 100 mg/dL (NEGATIVE); UROBILINOGEN,URINE NEGATIVE mg/dL (<2.0)
[2019-12-08 17:51] LABS: URINE CREATININE 97.5 mg/dL (22-328)
[2019-12-08 18:01] LABS: UR PRO/CREAT RATIO RESULT 3.1 mg/mg (0.0-0.2); URINE PROTEIN 302.9 mg/dL (<12)
== END ==
LOC: OD 11:07
PROVIDERS: ATTEND Internal Medicine Nephrology
DX: N18.4 Chronic kidney disease, stage 4 (severe) (principal)
CPT/HCPCS: 36415; 80053; 81001; 82570; 83735; 83970; 84100; 84156; 85025